=== PATIENT | male | born 1965 | race Caucasian/White ===

== ENCOUNTER 2016-12-18 10:40 | Observation (INO) | payer BC ==
[~2016-12-18] VITALS: Ht 176.5 cm; Wt 74.9 kg
[~2016-12-18 10:40] MED LIST: ACET-2723 PO; IBUP-2067 PO; TRAM200T2 PO; TRAM50TA4 PO; TRAZ300T2 PO
--- OUTSIDE RECORDS SUMMARY | 2016-12-18 10:44 | XMS REPORT ---
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 Non Drug Allergy Problems Problem Type Condition ICD-9 Code Onset Dates Condition Status Problem Generalized osteoarthrosis, involving multiple sites 715.09 Active Problem Tobacco use disorder 305.1 Active Problem Migraine headaches 346.90 Active Problem Chest pain, other 786.59 Active Assessment Adjustment disorder with mixed anxiety and depressed mood 309.28 Active Problem Adjustment disorder with mixed anxiety and depressed mood 309.28 Active Problem Syncope and collapse 780.2 Active Medications Medication Code System Code Instructions Start Date End Date Status Dosage Aspir-81 [facility] [address]-28 81 MG Orally Once a day 1 tablet Tramadol HCl [facility] [address]-37 50 MG Orally every 6 hrs 1 tablet as needed Fetzima [facility] 0206-4119-53 2-20mg capsules; 5-40 mg capsules: Starter Kit orally daily with breakfast Oct 24, 2014 November 23, 2014 as directed Procedures Procedure Coding System Code Date OFFICE VISIT, EST-MOD. COMPLEXITY (25 MIN) CPT-4 72496 Oct 24, 2014 Vital Signs Date/Time: Oct 24, 2014 Height 69 in Weight 168 lbs Temperature 98.3 F Blood Pressure Diastolic 84 mm Hg Blood Pressure Systolic 134 mm Hg Cardiac Monitoring Heart Rate 80 /min BMI 24.81 Index Respiratory Rate 20 /min Results No Known Results Summary Purpose [employer] Submission
--- OUTSIDE RECORDS SUMMARY | 2016-12-18 10:45 | XMS REPORT ---
Author Author Yury Patel Organization [employer] Address Unknown Phone Unavailable Care Team Providers Care Crime Scene Technician Name Role Phone Yury Patel CP Unavailable Allergies No Known Allergies Problems Problem Type Condition Code Onset Dates Condition Status Problem Migraine headaches 346.90 Active Problem Generalized osteoarthrosis, involving multiple sites 715.09 Active Problem Unspecified personality disorder 301.9 Active Problem Syncope and collapse 780.2 Active Problem Chest pain, other 786.59 Active Problem Tobacco use disorder 305.1 Active Problem Adjustment disorder with mixed anxiety and depressed mood 309.28 Active Medications No Known Medications Results No Known Results Summary Purpose [employer] Submission
--- OUTSIDE RECORDS SUMMARY | 2016-12-18 10:45 | XMS REPORT ---
Author Author Yury Patel Organization [employer] Address Unknown Phone Unavailable Care Team Providers Care Slip Mixer Name Role Phone Yury Patel CP Unavailable Allergies, Adverse Reactions, Alerts Substance Reaction Event Type Morphine Sulfate addicted Drug Allergy bee stings anaphylaxis Non Drug Allergy Problems Problem Type Condition ICD-9 Code Onset Dates Condition Status Assessment Generalized osteoarthrosis, involving multiple sites 715.09 Active Assessment Depressive disorder, not elsewhere classified 311 Active Assessment Central hearing loss 389.14 Active Problem Migraine headaches 346.90 Active Problem Generalized osteoarthrosis, involving multiple sites 715.09 Active Problem Depressive disorder, not elsewhere classified 311 Active Problem Syncope and collapse 780.2 Active Problem Chest pain, other 786.59 Active Problem Tobacco use disorder 305.1 Active Problem Adjustment disorder with mixed anxiety and depressed mood 309.28 Active Assessment Nocturia 788.43 Active Assessment Leukocytopenia, unspecified 288.50 Active Assessment 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 Assessment Hypocalcemia 275.41 Active Medications Medication Code System Code Instructions Start Date End Date Status Dosage Mobic [facility] [address]-82 7.5 MG Orally Once a day Oct 24, 2014 January 22, 2015 1 tablet Prilosec OTC [facility] [address]56 20 MG Orally Once a day Oct 24, 2014 1 tablet Tramadol HCl [facility] [address]-60 50 MG Orally every 6 hrs as needed for pain December 21, 2014 1 tablet as needed Aspir-81 [facility] [address]-78 81 MG Orally Once a day 1 tablet Procedures Procedure Coding System Code Date OFFICE VISIT, EST-MOD. COMPLEXITY (25 MIN) CPT-4 03396 November 21, 2014 Vital Signs Date/Time: November 21, 2014 Height 69 in Weight 162.8 lbs Temperature 97.9 F Blood Pressure Diastolic 70 mm Hg Blood Pressure Systolic 118 mm Hg Cardiac Monitoring Heart Rate 76 /min BMI 24.04 Index Respiratory Rate 16 /min Results No Known Results Summary Purpose [employer] Submission
--- OUTSIDE RECORDS SUMMARY | 2016-12-18 10:45 | XMS REPORT ---
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 Non Drug Allergy Problems Problem Type Condition ICD-9 Code Onset Dates Condition Status Assessment Other bursitis disorders 727.3 Active Problem Chest pain, other 786.59 Active Assessment Pain in joint, pelvic region and thigh 719.45 Active Assessment Leukocytopenia, unspecified 288.50 Active Problem Unspecified personality disorder 301.9 Active Problem Migraine headaches 346.90 Active Problem Depressive disorder, not elsewhere classified 311 Active Problem Adjustment disorder with mixed anxiety and depressed mood 309.28 Active Problem Syncope and collapse 780.2 Active Problem Generalized osteoarthrosis, involving multiple sites 715.09 Active Problem Tobacco use disorder 305.1 Active Medications Medication Code System Code Instructions Start Date End Date Status Dosage Tramadol HCl [facility] [address]-55 50 MG Orally every 6 hrs 1 tablet as needed Fetzima [facility] 4543-[address]-99 20 mg orally every AM and NOON December 05, 2014 November 30, 2015 as directed Prilosec OTC [facility] [address]60 20 MG Orally Once a day Oct 24, 2014 1 tablet Mobic [facility] [address]-45 15 MG Orally Once a day May 28, 2015 1 tablet Aspir-81 [facility] [address]-28 81 MG Orally Once a day 1 tablet Procedures Procedure Coding System Code Date PATHOLOGIST REVIEW CPT-4 69307 February 27, 2015 OFFICE VISIT, EST-MOD. COMPLEXITY (25 MIN) CPT-4 07814 February 27, 2015 COMPLETE CBC W/AUTO DIFF WBC CPT-4 84650 February 27, 2015 Vital Signs Date/Time: February 27, 2015 Height 69 in Weight 154.12 lbs Temperature 98.6 F Blood Pressure Diastolic 96 mm Hg Blood Pressure Systolic 146 mm Hg Cardiac Monitoring Heart Rate 83 /min BMI 22.76 Index Oximetry 98 % Respiratory Rate 18 /min Results Name Result Date Reference Range Unit Abnormality Flag CBC With Platelet and Differential Summary Purpose [employer] Submission
--- OUTSIDE RECORDS SUMMARY | 2016-12-18 10:45 | XMS REPORT ---
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 anaphylaxis Non Drug Allergy Problems Problem Type Condition ICD-9 Code Onset Dates Condition Status Problem Syncope and collapse 780.2 Active Problem Chest pain, other 786.59 Active Problem Adjustment disorder with mixed anxiety and depressed mood 309.28 Active Assessment Chest pain, other 786.59 Active Assessment Adjustment disorder with mixed anxiety and depressed mood 309.28 Active Assessment Syncope and collapse 780.2 Active Medications Medication Code System Code Instructions Start Date End Date Status Dosage Aspir-81 [facility][NOTE 3] [address]-25 81 MG Orally Once a day Active 1 tablet Tramadol HCl [facility][NOTE 3] [address]-56 50 MG Orally every 6 hrs Active 1 tablet as needed Procedures Procedure Coding System Code Date OFFICE VISIT, CLAIM INVESTIGATOR-LOW COMPLEXITY (30 MIN.) CPT-4 12447 Sep 20, 2014 Vital Signs Date/Time: Sep 20, 2014 Height 70 inches Weight 165.8 lbs Temperature 97.9 F Respiratory Rate 16 per Minute Blood Pressure Diastolic 80 mm Hg Blood Pressure Systolic 118 mm Hg Cardiac Monitoring Heart Rate 84 Beats per Minute Results No Known Results Summary Purpose [employer] Submission
--- OUTSIDE RECORDS SUMMARY | 2016-12-18 10:45 | XMS REPORT ---
Author Author Yury Patel Organization [employer] Address Unknown Phone Unavailable Care Team Providers Care Director Payment Name Role Phone Yury Patel CP Unavailable Allergies No Known Allergies Problems Problem Type Condition ICD-9 Code Onset Dates Condition Status Problem Syncope and collapse 780.2 Active Problem Chest pain, other 786.59 Active Problem Adjustment disorder with mixed anxiety and depressed mood 309.28 Active Medications No Known Medications Vital Signs Date/Time: Sep 20, 2014 Height 70 inches Weight 165.8 lbs Temperature 97.9 F Respiratory Rate 16 per Minute Blood Pressure Diastolic 80 mm Hg Blood Pressure Systolic 118 mm Hg Cardiac Monitoring Heart Rate 84 Beats per Minute Results No Known Results Summary Purpose [employer] Submission
--- OUTSIDE RECORDS SUMMARY | 2016-12-18 10:45 | XMS REPORT ---
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 Non Drug Allergy Problems Problem Type Condition ICD-9 Code Onset Dates Condition Status Assessment Esophageal reflux 530.81 Active Problem Chest pain, other 786.59 Active Assessment Abdominal pain, epigastric 789.06 Active Problem Unspecified personality disorder 301.9 Active Problem Migraine headaches 346.90 Active Problem Esophageal reflux 530.81 Active Problem Adjustment disorder with mixed anxiety and depressed mood 309.28 Active Problem Syncope and collapse 780.2 Active Problem Generalized osteoarthrosis, involving multiple sites 715.09 Active Problem Tobacco use disorder 305.1 Active Assessment Dizziness and giddiness 780.4 Active Assessment Blood in stool 578.1 Active Assessment Chest pain, other 786.59 Active Assessment Loss of weight 783.21 Active Assessment Dysuria 788.1 Active Medications Medication Code System Code Instructions Start Date End Date Status Dosage Tramadol HCl [facility] [address]-06 50 MG Orally every 6 hrs May 16, 2015 Jun 15, 2015 1 tablet as needed Trazodone HCl [facility] [address]-58 50 MG Orally Once a day May 01, 2015 1/2 to 2 tablets at bedtime Prilosec OTC [facility] [address] 20 MG Orally every 12 hours Oct 24, 2014 2 tablets Fetzima [facility] 8041-6671-36 20 mg orally every AM and NOON December 05, 2014 November 30, 2015 as directed Aspir-81 [facility] [address]-59 81 MG Orally Once a day 1 tablet Procedures Procedure Coding System Code Date OFFICE VISIT, EST-MOD. COMPLEXITY (25 MIN) CPT-4 33343 May 29, 2015 HEMOCCULT STOOL 1 CARD, IN HOUSE CPT-4 73203 May 29, 2015 Vital Signs Date/Time: May 29, 2015 Height 69 in Weight 156.8 lbs Temperature 98.2 F Blood Pressure Diastolic 92 mm Hg Blood Pressure Systolic 130 mm Hg Cardiac Monitoring Heart Rate 88 /min BMI 23.15 Index Oximetry 98 % Respiratory Rate 18 /min Results No Known Results Summary Purpose [employer] Submission
--- OUTSIDE RECORDS SUMMARY | 2016-12-18 10:45 | XMS REPORT ---
Author Author Yury Patel Organization [employer] Address Unknown Phone Unavailable Care Team Providers Care Umbrella Cutter Name Role Phone Yury Patel CP Unavailable Allergies No Known Allergies Problems Problem Type Condition Code Onset Dates Condition Status Problem Chest pain, other 786.59 Active Problem Adjustment disorder with mixed anxiety and depressed mood 309.28 Active Problem Syncope and collapse 780.2 Active Assessment Encounter for therapeutic drug level monitoring Z51.81 Active Problem Other anxiety states 300.09 Active Problem Esophageal reflux 530.81 Active Problem Depressive disorder, not elsewhere classified 311 Active Problem Generalized osteoarthrosis, involving multiple sites 715.09 Active Problem Tobacco use disorder 305.1 Active Problem Unspecified personality disorder 301.9 Active Problem Migraine headaches 346.90 Active Medications Medication Code System Code Instructions Start Date End Date Status Dosage Trazodone HCl [facility] [address]-84 50 MG Orally Once a day May 01, 2015 1/2 to 2 tablets at bedtime Vimovo [facility] [address]-73 375-20 MG Orally Twice a day Jun 26, 2015Sep 1 tablet before meals Results No Known Results Summary Purpose [employer] Submission
--- OUTSIDE RECORDS SUMMARY | 2016-12-18 10:45 | XMS REPORT ---
Author Author Yury Patel Organization [employer] Address Unknown Phone Unavailable Care Team Providers Care Security System Administrator Name Role Phone Yury Patel CP Unavailable Allergies, Adverse Reactions, Alerts Substance Reaction Event Type Morphine Sulfate addicted Drug Allergy bee stings anaphylaxis Non Drug Allergy Problems Problem Type Condition ICD-9 Code Onset Dates Condition Status Assessment Generalized osteoarthrosis, involving multiple sites 715.09 Active Assessment Chest pain, other 786.59 Active Assessment Migraine headaches 346.90 Active Assessment Tobacco use disorder 305.1 Active Problem Generalized osteoarthrosis, involving multiple sites [...] Instructions Start Date End Date Status Dosage Prilosec OTC [facility] [address] 20 MG Orally Once a day Oct 24, 2014 1 tablet Tramadol HCl [facility] [address]-00 50 MG Orally every 6 hrs as needed for pain November 23, 2014 1 tablet as needed Mobic [facility] [address]-54 7.5 MG Orally Once a day Oct 24, 2014 January 22, 2015 1 tablet Aspir-81 [facility] [address]-14 81 MG Orally Once a day 1 tablet Procedures Procedure Coding System Code Date OFFICE VISIT, EST-MOD. COMPLEXITY (25 MIN) CPT-4 05922 Oct 24, 2014 Vital Signs Date/Time: Oct 24, 2014 Height 69 in Weight 166 lbs Temperature 98.0 F Blood Pressure Diastolic 78 mm Hg Blood Pressure Systolic 132 mm Hg Cardiac Monitoring Heart Rate 80 /min BMI 24.51 Index Respiratory Rate 18 /min Results No Known Results Summary Purpose [employer] Submission
--- OUTSIDE RECORDS SUMMARY | 2016-12-18 10:45 | XMS REPORT ---
Author Author Yury Patel Organization [employer] Address Unknown Phone Unavailable Care Team Providers Care Cotton Tipper Name Role Phone Yury Patel CP Unavailable Allergies No Known Allergies Problems Problem Type Condition Code Onset Dates Condition Status Problem Tobacco use disorder 305.1 Active Problem Migraine headaches 346.90 Active Problem Generalized osteoarthrosis, involving multiple sites 715.09 Active Problem Gastro-esophageal reflux disease without esophagitis K21.9 Active Problem Nicotine dependence, unspecified, uncomplicated F17.200 Active Problem Primary generalized (osteo)arthritis M15.0 Active Problem Esophageal reflux 530.81 Active Problem Unspecified personality disorder 301.9 Active Problem Depressive disorder, not elsewhere classified 311 Active Problem Other anxiety states 300.09 Active Problem Chest pain, other 786.59 Active Problem Syncope and collapse 780.2 Active Problem Adjustment disorder with mixed anxiety and depressed mood 309.28 Active Medications Medication Code System Code Instructions Start Date End Date Status Dosage Tramadol HCl [facility] [address]-13 50 MG Orally every 6 hrs Jun 19, 2015 Aug 06, 2016 1 tablet as needed Results No Known Results Summary Purpose [employer] Submission
--- OUTSIDE RECORDS SUMMARY | 2016-12-18 10:45 | XMS REPORT ---
Author Author Yury Patel Organization [employer] Address Unknown Phone Unavailable Care Team Providers Care Elementary Art Teacher Name Role Phone Yury Patel CP Unavailable Allergies No Known Allergies Problems Problem Type Condition ICD-9 Code Onset Dates Condition Status Assessment Depressive disorder, not elsewhere classified 311 Active Problem Migraine headaches 346.90 Active Problem [...] Start Date End Date Status Dosage Mobic [facility] [address]-61 7.5 MG Orally Once a day Oct 24, 2014 January 22, 2015 1 tablet Prilosec OTC [facility] [address]67 20 MG Orally Once a day Oct 24, 2014 1 tablet Aspir-81 [facility] [address]-04 81 MG Orally Once a day 1 tablet Tramadol HCl [facility] [address]-83 50 MG Orally every 6 hrs as needed for pain December 21, 2014 1 tablet as needed Procedures Procedure Coding System Code Date COMPLETE CBC W/AUTO DIFF WBC CPT-4 39069 November 28, 2014 COMPREHENSIVE METABOLIC PANEL CPT-4 12462 November 28, 2014 URINALYSIS, IN HOUSE CPT-4 43031 November 28, 2014 TSH CPT-4 99738 November 28, 2014 LIPID PANEL CPT-4 81020 November 28, 2014 PSA NO REFLEX CPT-4 92717 November 28, 2014 Results No Known Results Summary Purpose [employer]Works Submission
--- OUTSIDE RECORDS SUMMARY | 2016-12-18 10:46 | XMS REPORT | Continuity of Care Document ---
Author Author [facility] Organization [facility] Address Unknown Phone Unavailable Support Name Relationship Address Phone RAYNA GROVE DO Caregiver [address] [address] CLARK BARBARA Janak Next Of Kin [address] [place] [address] Insurance Providers Payer Name Policy Number Subscriber Name Relationship Self Pay Roe Rodas 20 Self Problems Medical Problems Problem Onset Date Status Dizziness Unknown Active Blurred vision Unknown Active Atypical chest pain Unknown Active Dizziness Unknown Active Medications Medication Dose Route Sig Days/Qty Instructions Order Date Discontinued Date Status [No Regular Meds] 08/20/09 10/11/11 Discontinued Ibuprofen 1 Tab PO Every 6 Hours PRN PAIN 09/09/14 Active Acetaminophen 1-2 Tab PO Every 6 Hours PRN PAIN 09/09/14 Active Social History Social History Problem Response Recorded Date/Time Chewing Tobacco Status Y 5 CANS PER WEEK 11/25/2013 7:47pm Hx Substance Use No 09/09/2014 3:14pm Hx Alcohol Use No 09/09/2014 3:14pm Tobacco Usage none 09/09/2014 1:41pm Query Response Start Date Stop Date Smoking Status Never smoker Hospital Discharge Instructions No hospital discharge instructions. Plan of Care No plan of care. Functional Status Query Response Date Recorded Physical Hygiene Self September 09, 2014 3:14pm Disabilities None September 09, 2014 3:14pm Devices Used None September 09, 2014 3:14pm Dressing Self September 09, 2014 3:14pm Ambulation Self September 09, 2014 3:14pm Diet Self September 09, 2014 3:14pm Mental Status Alert Oriented September 09, 2014 3:14pm Disabilities None September 09, 2014 3:14pm Devices Used None September 09, 2014 3:14pm Physical Hygiene Self September 09, 2014 3:14pm Dressing Self September 09, 2014 3:14pm Ambulation Self September 09, 2014 3:14pm Diet Self September 09, 2014 3:14pm Allergies, Adverse Reactions, Alerts Allergen Type Severity Reaction Status Last Updated Morphine Adverse Reaction Unknown PMH ADDICTION TO MORPHINE Active Immunizations Name Given Type Hx Influenza Vaccination No Historical Hx Tetanus, Diptheria, Pertussis No Historical Hx Influenza Vaccination No Historical Hx Tetanus, Diptheria, Pertussis No Historical Vital Signs Acute Vital Signs Vital Response Date/Time Temperature (Fahrenheit) 98.0 deg F (96.8 - 99.1) Temperature (Calculated Celsius) 36.20736 degrees C (36.0 - 37.3) Pulse Rate (adult) 83 bpm (60 - 100) Respiratory Rate 16 breaths/min (10 - 20) O2 Sat by Pulse Oximetry 100 % (90 - 100) Blood Pressure 134/79 mm Hg Height 5 ft 9.5 in Weight 164 lb Body Mass Index 23.0 kg/m^2 Results Test Source Date Result Interp. Ref. Range Comments Alanine Aminotransferase (ALT/SGPT) September 09, 2014 12:40pm 36 U/L N 21 -72 Albumin September 09, 2014 12:40pm 4.8 G/DL N 3.5-5.0 Albumin/Globulin Ratio September 09, 2014 12:40pm 1.7 RATIO N 1.1-2.2 Alkaline Phosphatase September 09, 2014 12:40pm 81 U/L N 38-126 Anion Gap September 09, 2014 12:40pm 11 MEQ/L N 5-15 Aspartate Amino Transf (AST/SGOT) September 09, 2014 12:40pm 34 U/L N 17- 59 BUN/Creatinine Ratio September 09, 2014 12:40pm 19 RATIO N 6-26 Band Neutrophils # September 09, 2014 12:40pm 0.2 T/MM3 - Band Neutrophils % September 09, 2014 12:40pm 4.0 % DN 0-6 Blood Urea Nitrogen September 09, 2014 12:40pm 17.0 MG/DL N 9-20 Calcium Level September 09, 2014 12:40pm 10.1 MG/DL N 8.4-10.2 Calculated Osmolality September 09, 2014 12:40pm 274 MOSM/KG N 261-280 Carbon Dioxide Level September 09, 2014 12:40pm 28 MEQ/L N 22-30 Chloride Level September 09, 2014 12:40pm 103 MEQ/L N 98-107 Creatinine September 09, 2014 12:40pm 0.9 MG/DL N 0.8-1.5 Globulin September 09, 2014 12:40pm 2.8 G/DL N 2.4-3.6 Glucose Level September 09, 2014 12:40pm 85 MG/DL N 75-110 Hematocrit September 09, 2014 12:40pm 47.3 % N 41-53 Hemoglobin September 09, 2014 12:40pm 16.2 GM/DL N 13.5-17.5 Influenza Type A Antigen November 25, 2013 8:00pm Negative - Negative for Flu A protein antigen. Assay sensitivity is90%. Influenza Type B Antigen November 25, 2013 8:00pm Negative - Negative for Flu B protein antigen. Assay sensitivity is90%. Lymphocytes # (Manual) September 09, 2014 12:40pm 1.1 T/MM3 N 1-4.8 Lymphocytes % (Manual) September 09, 2014 12:40pm 21.0 % L 23-45 Mean Corpuscular Hemoglobin September 09, 2014 12:40pm 31.1 UUG N 26-34 Mean Corpuscular Hemoglobin Concent September 09, 2014 12:40pm 34.2 GM/DL N 31-37 Mean Corpuscular Volume September 09, 2014 12:40pm 90.8 UM3 N 80-100 Mean Platelet Volume September 09, 2014 12:40pm 9.5 UM3 N 9.4-12.4 Monocytes # (Manual) September 09, 2014 12:40pm 0.1 T/MM3 N 0-0.8 Monocytes % (Manual) September 09, 2014 12:40pm 2.0 % N 0-9.0 Neutrophils # (Manual) September 09, 2014 12:40pm 3.8 T/MM3 N 1.8-7.7 Neutrophils % (Manual) September 09, 2014 12:40pm 70.0 % H 33-66 Platelet Count September 09, 2014 12:40pm 180 T/MM3 N 130-400 Potassium Level September 09, 2014 12:40pm 5.0 MEQ/L N 3.6-5 Prothromb Time International Ratio September 09, 2014 12:40pm 1.00 N 0.81- 1.09 THERAPUTIC RANGE=2.00-3.00 FOR ANTI-THROMBOSIS THERAPUTIC RANGE=2.50- 3.50 FOR IMPLANTED VALVE RDW Standard Deviation September 09, 2014 12:40pm 44.0 FL N 36.9-50.2 Red Blood Count September 09, 2014 12:40pm 5.21 M/MM3 N 4.50-5.90 Sodium Level September 09, 2014 12:40pm 142 MEQ/L N 134-144 Total Bilirubin September 09, 2014 12:40pm 0.70 MG/DL N 0.20-1.30 Total Protein September 09, 2014 12:40pm 7.6 G/DL N 6.3-8.2 Troponin I September 09, 2014 12:40pm < 0.012 ng/ml 0-0.12 Urine Bilirubin September 09, 2014 12:28pm Negative - Has specimen been collected/obtained? Y Urine Blood September 09, 2014 12:28pm Negative - Has specimen been collected/obtained? Y Urine Collection Type September 09, 2014 12:28pm Voided-not cc-midstr - Has specimen been collected/obtained? Y Urine Color September 09, 2014 12:28pm Yellow - Has specimen been collected/obtained? Y Urine Glucose (UA) September 09, 2014 12:28pm Negative - Has specimen been collected/obtained? Y Urine Ketones September 09, 2014 12:28pm Negative - Has specimen been collected/obtained? Y Urine Leukocyte Esterase September 09, 2014 12:28pm Negative - Has specimen been collected/obtained? Y Urine Nitrite September 09, 2014 12:28pm Negative - Has specimen been collected/obtained? Y Urine Protein September 09, 2014 12:28pm Negative - Has specimen been collected/obtained? Y Urine Specific [place] September 09, 2014 12:28pm 1.010 L - Has specimen been collected/obtained? Y Urine Turbidity September 09, 2014 12:28pm Clear - Has specimen been collected/obtained? Y Urine Urobilinogen September 09, 2014 12:28pm 0.2 EU/DL - Has specimen been collected/obtained? Y Urine pH September 09, 2014 12:28pm 6.0 - Has specimen been collected/ obtained? Y White Blood Count September 09, 2014 12:40pm 5.4 T/MM3 N 4.5-11.0 Chemistry Specimen Hemolysis September 09, 2014 12:40pm < 15 0-25 0-25 : No Hemolysis.26-70: Slight Hemolysis - can falsely elevate K and Urine Protein. 71-285: Moderate Hemolysis - can falsely elevate K, Troponin I, CA 19-9, PTH, CSF GLucose, and Urine Protein, and can falsely decrease Phenytoin. 286-999: Gross Hemolysis - can falsely elevate K, Troponin I, CA 19-9, PTH, CSF Glucose, and Urine Protine, and can falsely decrease Phenytoin. Recommend specimen recollection. Urinalysis Comment September 09, 2014 12:28pm Microscopic not ind. - Has specimen been collected/obtained? Y Turbidity September 09, 2014 12:40pm < 20 0-20 Reactive Lymphocytes % September 09, 2014 12:40pm 3.0 % H 0-0 Glomerular Filtration Rate Calc September 09, 2014 12:40pm 90 - Reactive Lymphocytes # September 09, 2014 12:40pm 0.2 T/MM3 H 0-0 Icterus Index September 09, 2014 12:40pm < 2 0-7 Procedures No known history of procedures. Encounters Encounter Location Date/Time Departed Emergency Room [facility] 09/09/14 11:21am Recent Diagnosis
--- OUTSIDE RECORDS SUMMARY | 2016-12-18 10:46 | XMS REPORT ---
Author Author Yury Patel Organization [employer] Address Unknown Phone Unavailable Care Team Providers Care Cupola Patcher Helper Name Role Phone Yury Patel CP Unavailable Allergies No Known Allergies Problems Problem Type Condition Code Onset Dates Condition Status Problem Chest pain, other 786.59 Active Problem Adjustment disorder with mixed anxiety and depressed mood 309.28 Active Problem Syncope and collapse 780.2 Active Problem Other anxiety states 300.09 Active [...] Tramadol HCl [facility] [address]-84 50 MG Orally every 6 hrs Jun 19, 2015 Jul 19, 2015 1 tablet as needed Results No Known Results Summary Purpose [employer] Submission
--- OUTSIDE RECORDS SUMMARY | 2016-12-18 10:46 | XMS REPORT ---
Author Author Yury Patel Organization [employer] Address Unknown Phone Unavailable Care Team Providers Care Hand Outside Cutter Name Role Phone Yury Patel CP Unavailable Allergies No Known Allergies Problems Problem Type Condition ICD-9 Code Onset Dates Condition Status Problem Migraine [...]
--- OUTSIDE RECORDS SUMMARY | 2016-12-18 10:46 | XMS REPORT | Continuity of Care Document ---
Author Author [facility] Organization [facility] Address Unknown Phone Unavailable Allergies Active Description Code Type Severity Reaction Onset Reported/Identified Relationship to Patient Clinical Status Yes morphine morphine Drug Allergy Unknown UNKNOWN 09/09/2014 Medications Problems Date Dx Coded Attending Type Code Diagnosis Diagnosed By 09/09/2014 Arnaldo Titus MD 368.8 VISUAL DISTURBANCES NEC 09/09/2014 Arnaldo Titus MD 780.4 DIZZINESS AND GIDDINESS 09/09/2014 Arnaldo Titus MD 780.8 GENERALIZED HYPERHIDROSIS 09/09/2014 Arnaldo Titus MD 781.2 ABNORMALITY OF GAIT 09/09/2014 Arnaldo Titus MD 786.59 CHEST PAIN NEC 09/09/2014 Arnaldo Titus MD 787.02 NAUSEA ALONE Procedures Results Test Result Range C REACTIVE PROTEIN - 09/09/14 18:43 C REACTIVE PROTEIN < 2.9 mg/L < 8.0 TROPONIN I - 09/09/14 18:43 TROPONIN I < 0.02 ng/mL < 0.07 SED RATE - 09/09/14 18:43 SED RATE 5 mm/hr 0-7 GLUCOSE (POC) - 09/09/14 20:55 GLUCOSE (POC) 103 mg/dL 70-99 UR DRUGS OF ABUSE SCREEN - 09/10/14 00:45 UR AMPHETAMINES SCREEN NEG (<1000 ng/mL) NEGATIVE UR BARBITURATE SCREEN NEG (< 200 ng/mL) NEGATIVE DRUGS OF ABUSE SCREEN COMMENT UR OPIATES SCREEN NEG (< 300 ng/mL) NEGATIVE UR PHENCYCLIDINE (PCP) SCREEN NEG (< 25 ng/mL) NEGATIVE UR CANNABINOIDS (THC) SCREEN NEG (< 50 ng/mL) NEGATIVE UR COCAINE METABOLITE SCREEN NEG (< 300 ng/mL) NEGATIVE UR METHADONE SCREEN NEG (< 300 ng/mL) NEGATIVE UR BENZODIAZEPINE SCREEN NEG (< 200 ng/mL) NEGATIVE GLUCOSE (POC) - 09/10/14 06:38 GLUCOSE (POC) 81 mg/dL 70-99 CBC W/DIFF - 09/10/14 06:38 BASOPHIL # 0.0 k/cumm 0.0-0.2 BASOPHIL % 1 % 0-1 EOSINOPHIL # 0.1 k/cumm 0.1-0.5 EOSINOPHIL % 4 % 2-4 GRANULOCYTE # 1.6 k/cumm 2.0-9.0 GRANULOCYTE % 49 % 50-75 LYMPHOCYTE # 1.2 k/cumm 1.0-4.0 LYMPHOCYTE % 35 % 20-30 MEAN CELL HGB 31.4 pg 27.0-33.0 MEAN CELL HGB CONCENTRATION 34.2 g/dL 32.0-37.0 MEAN CELL VOLUME 91.7 fl 80.0-100.0 MONOCYTE # 0.4 k/cumm 0.1-1.0 MONOCYTE % 11 % 4-6 RED BLOOD CELL 4.81 m/cumm 4.00-6.00 RED CELL DISTRIBUTION WIDTH 13.4 % 11.0- 15.6 WHITE BLOOD CELL 3.3 k/cumm 5.0-10.0 HEMOGLOBIN 15.1 gm/dL 14.0-18.0 HEMATOCRIT 44.1 % 40.0-54.0 PLATELET COUNT 146 k/cumm 150-400 METABOLIC PANEL, COMPREHN - 09/10/14 06:38 POTASSIUM 4.5 mmol/L 3.5-5.3 EST GFR (MDRD) > 60 mL/min > 59 ANION GAP 6 mmol/L 5-15 EST CrCl (CG) > 60 mL/min > 59 GLUCOSE 91 mg/dL 70-99 CALCIUM 7.8 mg/dL 8.5-10.1 BLOOD UREA NITROGEN 14 mg/dL 7-20 CREATININE 0.9 mg/dL 0.8-1.3 SODIUM 141 mmol/L 135-148 CHLORIDE 111 mmol/L 98-110 AST/SGOT 16 Units/L 10-37 ALT/SGPT 26 Units/L < 66 CARBON DIOXIDE 24 mmol/L 21-32 TOTAL PROTEIN 6.0 gm/dL 6.4-8.2 ALBUMIN 3.1 gm/dL 3.4-5.0 BILI TOTAL 0.6 mg/dL 0.0-1.0 ALKALINE PHOSPHATASE TOTAL 64 IU/L 45- 117 LIPID PANEL - 09/10/14 06:38 CHOLESTEROL/HDL RATIO 3.5 < 5.0 LDL CHOLESTEROL 91 mg/dL < 100 VLDL CHOLESTEROL 20 mg/dL < 30 TRIGLYCERIDES 101 mg/dL < 150 CHOLESTEROL 156 mg/dL < 200 HDL CHOLESTEROL 45 mg/dL > 39 PHOSPHORUS - 09/10/14 06:38 PHOSPHORUS 3.2 mg/dL 2.5-4.9 MAGNESIUM - 09/10/14 06:38 MAGNESIUM 2.1 mg/dL 1.8-2.4 VITAMIN B12 - 09/10/14 06:38 VITAMIN B12 739 pg/mL 211-911 THYROID STIM HORMONE (TSH) - 09/10/14 06:38 THYROID STIM HORMONE (TSH) 2.24 uIU/mL 0.34-4.82 TROPONIN I - 09/10/14 06:38 TROPONIN I < 0.02 ng/mL < 0.07 THROMBOPHILIA PROFILE, STROKE - 09/10/14 06:38 DILUTE RUFINO VIPER VENOM TIME NEGATIVE NEGATIVE SILICA CLOTTING TIME NEGATIVE NEGATIVE BETA-2 GLYCOPROTEIN I AB IGA < 9 0-25 BETA-2 GLYCOPROTEIN I AB IGG < 9 0-20 BETA-2 GLYCOPROTEIN I AB IGM < 9 0-32 AB CARDIOLIPIN IGA <9 APL U/mL 0-11 AB CARDIOLIPIN IGG <9 GPL U/mL 0-14 AB CARDIOLIPIN IGM <9 MPL U/mL 0-12 FIBRINOGEN 258 mg/dL 200-400 FACTOR 8 ACTIVITY 121.3 % act 63-177 [place] FACTOR ANTIGEN 171 % 44- 218 PLASMINOGEN ACTIVATOR INHIBIT 10.0 IU/mL 0-27 LIPOPROTEIN (a) < 10 nmol/L <75 HOMOCYSTEINE, PLASMA 6.3 mcmol/L 3.7- 13.9 GLUCOSE (POC) - 09/10/14 10:34 GLUCOSE (POC) 77 mg/dL 70-99 GLUCOSE (POC) - 09/10/14 14:06 GLUCOSE (POC) 78 mg/dL 70-99 GLUCOSE (POC) - 09/10/14 19:55 GLUCOSE (POC) 94 mg/dL 70-99 CBC W/DIFF - 09/11/14 05:12 BASOPHIL # 0.0 k/cumm 0.0-0.2 BASOPHIL % 1 % 0-1 EOSINOPHIL # 0.2 k/cumm 0.1-0.5 EOSINOPHIL % 5 % 2-4 GRANULOCYTE # 1.6 k/cumm 2.0-9.0 GRANULOCYTE % 44 % 50-75 LYMPHOCYTE # 1.4 k/cumm 1.0-4.0 LYMPHOCYTE % 39 % 20-30 MEAN CELL HGB 30.9 pg 27.0-33.0 MEAN CELL HGB CONCENTRATION 33.9 g/dL 32.0-37.0 MEAN CELL VOLUME 91.2 fl 80.0-100.0 MONOCYTE # 0.4 k/cumm 0.1-1.0 MONOCYTE % 12 % 4-6 RED BLOOD CELL 4.89 m/cumm 4.00-6.00 RED CELL DISTRIBUTION WIDTH 13.2 % 11.0- 15.6 WHITE BLOOD CELL 3.6 k/cumm 5.0-10.0 HEMOGLOBIN 15.1 gm/dL 14.0-18.0 HEMATOCRIT 44.6 % 40.0-54.0 PLATELET COUNT 146 k/cumm 150-400 METABOLIC PANEL, BASIC - 09/11/14 05:12 POTASSIUM 4.3 mmol/L 3.5-5.3 EST GFR (MDRD) > 60 mL/min > 59 ANION GAP 5 mmol/L 5-15 EST CrCl (CG) > 60 mL/min > 59 GLUCOSE 102 mg/dL 70-99 CALCIUM 8.5 mg/dL 8.5-10.1 BLOOD UREA NITROGEN 17 mg/dL 7-20 CREATININE 0.9 mg/dL 0.8-1.3 SODIUM 142 mmol/L 135-148 CHLORIDE 110 mmol/L 98-110 CARBON DIOXIDE 27 mmol/L 21-32 GLUCOSE (POC) - 09/11/14 05:51 GLUCOSE (POC) 92 mg/dL 70-99 GLUCOSE (POC) - 09/11/14 11:07 GLUCOSE (POC) 83 mg/dL 70-99 GLUCOSE (POC) - 09/11/14 17:01 GLUCOSE (POC) 77 mg/dL 70-99 ANTITHROMBIN ACTIVITY - 09/11/14 17:16 ANTITHROMBIN ACTIVITY 119 % 78-128 FACTOR II, DNA - 09/11/14 17:16 FACTOR II, DNA NEGATIVE NEGATIVE PROTEIN C ACTIVITY - 09/11/14 17:16 PROTEIN C ACTIVITY 112 % act 82-154 FACTOR V DNA - LEIDEN VARIANT - 09/11/14 17:16 FACTOR V MUTATION DNA NEGATIVE NEGATIVE PROTEIN S ANTIGEN FREE - 09/11/14 17:16 PROTEIN S ANTIGEN FREE 129 % 73-137 GLUCOSE (POC) - 09/11/14 19:44 GLUCOSE (POC) 87 mg/dL 70-99 GLUCOSE (POC) - 09/12/14 05:43 GLUCOSE (POC) 161 mg/dL 70-99 GLUCOSE (POC) - 09/12/14 11:15 GLUCOSE (POC) 98 mg/dL 70-99 GLUCOSE (POC) - 09/12/14 14:54 GLUCOSE (POC) 101 mg/dL 70-99 GLUCOSE (POC) - 09/12/14 20:23 GLUCOSE (POC) 105 mg/dL 70-99 GLUCOSE (POC) - 09/13/14 06:24 GLUCOSE (POC) 83 mg/dL 70-99 GLUCOSE (POC) - 09/13/14 09:58 GLUCOSE (POC) 91 mg/dL 70-99 Encounters ACCT No. Visit Date/Time Discharge Status Pt. Type Provider Facility Loc./Unit Complaint [id number] 09/09/2014 17:53:00 2014 13:37:00 DIS Inpatient Tacho CABRERA, J [facility] [id number]
--- OUTSIDE RECORDS SUMMARY | 2016-12-18 10:46 | XMS REPORT ---
Author Author Yury Patel Organization [employer] Address Unknown Phone Unavailable Care Team Providers Care Electrical Machine Builder Name Role Phone Yury Patel CP Unavailable Allergies No Known Allergies Problems Problem Type Condition ICD-9 Code Onset Dates Condition Status Problem Chest pain, other 786.59 Active Problem Unspecified personality disorder 301.9 Active [...] End Date Status Dosage Tramadol HCl [facility] [address]-10 50 MG Orally every 6 hrs May 13, 2015 1 tablet as needed Results No Known Results Summary Purpose [employer] Submission
--- OUTSIDE RECORDS SUMMARY | 2016-12-18 10:46 | XMS REPORT ---
Author Author Yury Patel Organization [employer] Address Unknown Phone Unavailable Care Team Providers Care Bee Rancher Name Role Phone Yury Patel CP Unavailable [...] Instructions Start Date End Date Status Dosage Colace [facility] [address]-53 100 MG Orally BID Aug 08, 2016 November 06, 2016 1 capsule as needed Tramadol HCl [facility] [address]-61 50 MG Orally every 6 hrs Jun 19, 2015 Sep 07, 2016 1 tablet as needed Results No Known Results Summary Purpose [employer] Submission
--- OUTSIDE RECORDS SUMMARY | 2016-12-18 10:46 | XMS REPORT ---
Author Author Yury Patel Organization [employer] Address Unknown Phone Unavailable Care Team Providers Care Road Freight Firer Name Role Phone Yury Patel CP Unavailable [...]
--- OUTSIDE RECORDS SUMMARY | 2016-12-18 10:46 | XMS REPORT ---
Author Author Yury Patel Organization [employer] Address Unknown Phone Unavailable Care Team Providers Care Teacher Adventure Education Name Role Phone Yury Patel CP Unavailable [...] Problem Tobacco use disorder 305.1 Active Medications No Known Medications Results No Known Results Summary Purpose [employer] Submission
--- OUTSIDE RECORDS SUMMARY | 2016-12-18 10:46 | XMS REPORT ---
Author Author Yury Patel Organization [employer] Address Unknown Phone Unavailable Care Team Providers Care Senior Support Engineer Name Role Phone Yury Patel CP Unavailable [...] Active Problem Migraine headaches 346.90 Active Medications No Known Medications Results No Known Results Summary Purpose [employer] Submission
--- OUTSIDE RECORDS SUMMARY | 2016-12-18 10:46 | XMS REPORT ---
Author Author Yury Patel Organization [employer] Address Unknown Phone Unavailable Care Team Providers Care Other Wood Processing Machine Operator Name Role Phone Yury Patel CP Unavailable [...]
--- OUTSIDE RECORDS SUMMARY | 2016-12-18 10:46 | XMS REPORT ---
Author Author Yury Patel Organization [employer] Address Unknown Phone Unavailable Care Team Providers Care Brown Sourer Name Role Phone Yury Patel CP Unavailable [...] Date End Date Status Dosage Tramadol HCl [facility] [address]-06 50 MG Orally every 6 hrs Jun 19, 2015 Aug 22, 2015 1 tablet as needed Results No Known Results Summary Purpose [employer] Submission
--- OUTSIDE RECORDS SUMMARY | 2016-12-18 10:47 | XMS REPORT ---
Author Author Yury Patel Organization [employer] Address Unknown Phone Unavailable Care Team Providers Care Executive Producer Name Role Phone Yury Patel CP Unavailable [...] Date Status Dosage Tramadol HCl [facility] [address]-07 50 MG Orally every 6 hrs, May fill 09-26-15. Jun 19, 2015 Oct 25, 2015 1 tablet as needed Results No Known Results Summary Purpose [employer] Submission
--- OUTSIDE RECORDS SUMMARY | 2016-12-18 10:47 | XMS REPORT ---
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 anaphylaxis Non Drug Allergy Problems Problem Type Condition Code Onset Dates Condition Status Assessment Depressive disorder, not elsewhere classified 311 Active Problem Chest pain, other 786.59 Active Assessment Adjustment disorder with mixed anxiety and depressed mood 309.28 Active Problem Unspecified personality disorder 301.9 Active [...] Start Date End Date Status Dosage Mobic [facility] 44749612129 7.5 Orally Once a day 1 tablet Aspir-81 [facility] [address]-52 81 MG Orally Once a day 1 tablet Fetzima [facility] [address]29[address]-44 20 mg orally every AM and NOON December 05, 2014 November 30, 2015 as directed Tramadol HCl [facility] [address]-29 50 MG Orally every 6 hrs 1 tablet as needed Prilosec OTC [facility] [address] 20 MG Orally Once a day Oct 24, 2014 1 tablet Procedures Procedure Coding System Code Date OFFICE VISIT, EST-MOD. COMPLEXITY (25 MIN) CPT-4 88422 January 30, 2015 Vital Signs Date/Time: January 30, 2015 Height 69 in Weight 157.4 lbs Temperature 97.8 F Blood Pressure Diastolic 76 mm Hg Blood Pressure Systolic 116 mm Hg Cardiac Monitoring Heart Rate 80 /min BMI 23.24 Index Respiratory Rate 20 /min Results No Known Results Summary Purpose [employer] Submission
--- OUTSIDE RECORDS SUMMARY | 2016-12-18 10:47 | XMS REPORT ---
Author Author Yury Patel Organization [employer] Address Unknown Phone Unavailable Care Team Providers Care Molding Press Operator Name Role Phone Yury Patel CP [...] 301.9 Active Problem Migraine headaches 346.90 Active Assessment Encounter for immunization Z23 Active Assessment Dizziness and giddiness R42 Active Assessment Primary generalized (osteo)arthritis M15.0 Active Assessment Nicotine dependence, unspecified, uncomplicated F17.200 Active Medications Medication Code System Code Instructions Start Date End Date Status Dosage Trazodone HCl [facility] [address]-80 50 MG Orally Once a day May 01, 2015 1/2 to 2 tablets at bedtime Tramadol HCl [facility] [address]-84 50 MG Orally every 6 hrs Jun 19, 2015 Jul 19, 2015 1 tablet as needed Vimovo [facility] [address]-46 375-20 MG Orally Twice a day Jun 26, 2015Sep 1 tablet before meals Procedures Procedure Coding System Code Date FLU VACCINE NO PRESERV 3 & > CPT-4 67562 Jun 26, 2015 ADMINISTRATION, 1ST IMMUNIZATION CPT-4 88580 Jun 26, 2015 OFFICE VISIT, EST-LOW COMPLEXITY (15 MIN.) CPT-4 09031 Jun 26, 2015 Vital Signs Date/Time: Jun 26, 2015 Height 69 in Weight 155.4 lbs Temperature 97.6 F Blood Pressure Diastolic 86 mm Hg Blood Pressure Systolic 126 mm Hg Cardiac Monitoring Heart Rate 80 /min BMI 22.95 Index Oximetry 98 % Respiratory Rate 16 /min Results No Known Results Immunizations Vaccine Administration Date Influenza shot 3 y.o. and older Jun 26, 2015 Summary Purpose [employer] Submission
--- OUTSIDE RECORDS SUMMARY | 2016-12-18 10:47 | XMS REPORT ---
Author Author Vanessa Cintron Organization [employer] Address Unknown Phone Unavailable Care Team Providers Care Signs And Displays Sales Representative Name Role Phone Vanessa Cintron CP Unavailable Allergies, Adverse Reactions, Alerts Substance Reaction Event Type Morphine Sulfate addicted Drug Allergy bee stings anaphylaxis Non Drug Allergy Problems Problem Type Condition ICD-9 Code Onset Dates Condition Status Assessment Depressive disorder, not elsewhere classified 311 Active Problem Chest pain, other 786.59 Active Assessment Adjustment disorder with mixed anxiety and depressed mood 309.28 Active Assessment Unspecified personality disorder 301.9 Active Problem Unspecified personality disorder 301.9 Active [...] Date End Date Status Dosage Tramadol HCl [facility] [address]-99 50 MG Orally every 6 hrs as needed for pain December 21, 2014 1 tablet as needed Aspir-81 [facility] [address]-85 81 MG Orally Once a day 1 tablet Prilosec OTC [facility] [address] 20 MG Orally Once a day Oct 24, 2014 1 tablet Fetzima [facility] 6148[address]-65 20 mg orally every AM and NOON December 05, 2014 November 30, 2015 as directed Mobic [facility] [address]-57 7.5 MG Orally Once a day Oct 24, 2014 January 22, 2015 1 tablet Procedures Procedure Coding System Code Date OFFICE VISIT, EST-MOD. COMPLEXITY (25 MIN) CPT-4 73096 December 05, 2014 Vital Signs Date/Time: December 05, 2014 Height 69 in Weight 157 lbs Temperature 98.7 F Blood Pressure Diastolic 70 mm Hg Blood Pressure Systolic 132 mm Hg Cardiac Monitoring Heart Rate 78 /min BMI 23.18 Index Respiratory Rate 20 /min Results No Known Results Summary Purpose [employer]Works Submission
--- OUTSIDE RECORDS SUMMARY | 2016-12-18 10:47 | XMS REPORT ---
Author Author Yury Patel Organization [employer] Address Unknown Phone Unavailable Care Team Providers Care Distribution Collection Operator Name Role Phone Yury Patel CP [...]
--- OUTSIDE RECORDS SUMMARY | 2016-12-18 10:47 | XMS REPORT ---
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 Non Drug Allergy Problems Problem Type Condition ICD-9 Code Onset Dates Condition Status Assessment Leukocytopenia, unspecified 288.50 Active Problem Chest pain, other 786.59 Active Assessment Other bursitis disorders 727.3 Active Problem Unspecified personality disorder 301.9 Active [...] End Date Status Dosage Tramadol HCl [facility] [address]-85 50 MG Orally every 6 hrs Apr 14, 2015 1 tablet as needed Mobic [facility] [address]-72 15 MG Orally Once a day May 28, 2015 1 tablet Prilosec OTC [facility] [address] 20 MG Orally Once a day Oct 24, 2014 1 tablet Aspir-81 [facility] [address]-90 81 MG Orally Once a day 1 tablet Fetzima [facility] 1696-50[address]-63 20 mg orally every AM and NOON December 05, 2014 November 30, 2015 as directed Procedures Procedure Coding System Code Date FOLATE- VIT B12 AND FOLATE CPT-4 48802 April 03, 2015 VITAMIN B12 CPT-4 78309 April 03, 2015 KATLYN SCREEN CPT-4 96088 April 03, 2015 OFFICE VISIT, EST-MOD. COMPLEXITY (25 MIN) CPT-4 38474 April 03, 2015 RHEUMATOID FACTOR CPT-4 15077 April 03, 2015 Vital Signs Date/Time: April 03, 2015 Height 69 in Weight 159.8 lbs Temperature 97.7 F Blood Pressure Diastolic 64 mm Hg Blood Pressure Systolic 128 mm Hg Cardiac Monitoring Heart Rate 88 /min BMI 23.60 Index Respiratory Rate 16 /min Results No Known Results Summary Purpose [employer] Submission
--- OUTSIDE RECORDS SUMMARY | 2016-12-18 10:47 | XMS REPORT ---
Author Author Yury Patel Organization [employer] Address Unknown Phone Unavailable Care Team Providers Care Director Of Estate Name Role Phone Yury Patel CP Unavailable [...] End Date Status Dosage Tramadol HCl [facility] [address]-93 50 MG Orally every 6 hrs Jun 19, 2015 Jun 07, 2016 1 tablet as needed Results No Known Results Summary Purpose [employer] Submission
--- OUTSIDE RECORDS SUMMARY | 2016-12-18 10:47 | XMS REPORT ---
Author Author Yury Patel Organization [employer] Address Unknown Phone Unavailable Care Team Providers Care Corporate Counselor Name Role Phone Yury Patel CP Unavailable [...] Date End Date Status Dosage Tramadol HCl [facility] [address]-44 50 MG Orally every 6 hrs Apr 14, 2015 1 tablet as needed Results No Known Results Summary Purpose [employer] Submission
--- OUTSIDE RECORDS SUMMARY | 2016-12-18 10:47 | XMS REPORT ---
Author Author Yury Patel Organization [employer] Address Unknown Phone Unavailable Care Team Providers Care Driver Wheelchair Name Role Phone Yury Patel CP Unavailable [...] Active Problem Migraine headaches 346.90 Active Assessment Impaired fasting glucose R73.01 Active Assessment Fibromyalgia M79.7 Active Assessment Major depressive disorder, single episode, unspecified F32.9 Active Assessment Nicotine dependence, unspecified, uncomplicated F17.200 Active Medications Medication Code System Code Instructions Start Date End Date Status Dosage Trazodone HCl [facility] [address]-28 50 MG Orally Once a day May 01, 2015 1/2 to 2 tablets at bedtime Procedures Procedure Coding System Code Date OFFICE VISIT, EST-MOD. COMPLEXITY (25 MIN) CPT-4 53528 Sep 04, 2015 Vital Signs Date/Time: Sep 04, 2015 Height 69 in Weight 159.4 lbs Temperature 97.4 F Blood Pressure Diastolic 82 mm Hg Blood Pressure Systolic 130 mm Hg Cardiac Monitoring Heart Rate 74 /min BMI 23.54 Index Oximetry 98 % Respiratory Rate 16 /min Results No Known Results Summary Purpose [employer] Submission
--- OUTSIDE RECORDS SUMMARY | 2016-12-18 10:47 | XMS REPORT ---
Author Author Yury Patel Organization [employer] Address Unknown Phone Unavailable Care Team Providers Care Supervisor Twisting Department Name Role Phone Yury Patel CP Unavailable [...] Date End Date Status Dosage Tramadol HCl [facility] [address]-00 50 MG Orally every 6 hrs Jun 19, 2015 Jul 05, 2016 1 tablet as needed Results No Known Results Summary Purpose [employer] Submission
--- OUTSIDE RECORDS SUMMARY | 2016-12-18 10:47 | XMS REPORT ---
Author Author Yury Patel Organization [employer] Address Unknown Phone Unavailable Care Team Providers Care Computer Forensic Specialist Name Role Phone Yury Patel CP Unavailable [...] Date End Date Status Dosage Tramadol HCl [facility] [address]-30 50 MG Orally every 6 hrs Jun 19, 2015 Aug 22, 2015 1 tablet as needed Results No Known Results Summary Purpose [employer] Submission
--- OUTSIDE RECORDS SUMMARY | 2016-12-18 10:48 | XMS REPORT ---
Author Author Yury Patel Organization [employer] Address Unknown Phone Unavailable Care Team Providers Care Electromechanical Equipment Assembler Name Role Phone Yury Patel CP Unavailable [...] End Date Status Dosage Tramadol HCl [facility] [address]-34 50 MG Orally every 6 hrs 1 tablet as needed Results No Known Results Summary Purpose [employer] Submission
--- OUTSIDE RECORDS SUMMARY | 2016-12-18 10:48 | XMS REPORT ---
Author Author Yury Patel Organization [employer] Address Unknown Phone Unavailable Care Team Providers Care Scaleman Name Role Phone Yury Patel CP Unavailable [...] Status Dosage Tramadol HCl [facility] [address]-91 50 MG Orally every 6 hrs May 16, 2015 Jun 15, 2015 1 tablet as needed Results No Known Results Summary Purpose [employer] Submission
--- OUTSIDE RECORDS SUMMARY | 2016-12-18 10:48 | XMS REPORT ---
Author Author Yury Patel Organization [employer] Address Unknown Phone Unavailable Care Team Providers Care Door Furring Installer Name Role Phone Yury Patel CP Unavailable Allergies, Adverse Reactions, Alerts Substance Reaction Event Type Morphine Sulfate addicted Drug Allergy bee stings anaphylaxis Non Drug Allergy Problems Problem Type Condition ICD-9 Code Onset Dates Condition Status Assessment Depressive disorder, not elsewhere classified 311 Active Problem Syncope and collapse 780.2 Active Problem Chest pain, other 786.59 Active Problem Depressive disorder, not elsewhere classified 311 Active Problem Unspecified personality disorder 301.9 Active Problem Depressive disorder, not elsewhere classified 311 Active Problem Tobacco use disorder 305.1 Active Problem Adjustment disorder with mixed anxiety and depressed mood 309.28 Active Problem Migraine headaches 346.90 Active Problem Generalized osteoarthrosis, involving multiple sites 715.09 Active Assessment Leukocytopenia, unspecified 288.50 Active Assessment Pain in joint, pelvic region and thigh 719.45 Active Assessment Dehydration 276.51 Active Assessment Pain in joint, ankle and foot 719.47 Active Assessment Dizziness and giddiness 780.4 Active Assessment Other malaise and fatigue 780.79 Active Medications Medication Code System Code Instructions Start Date End Date Status Dosage Fetzima [facility] 3554[address]-27 20 mg orally every AM and NOON December 05, 2014 November 30, 2015 as directed Mobic [facility] [address]-61 15 MG Orally Once a day May 28, 2015 1 tablet [address] OTC [facility] [address] 20 MG Orally Once a day Oct 24, 2014 1 tablet Aspir-[address] [facility] [address]-21 81 MG Orally Once a day 1 [address] Tram[address]ol [address] [facility] [address]-45 50 MG Orally every 6 hrs May 13, 2015 1 tablet as needed Procedures Procedure Coding System Code Date OFFICE VISIT, EST-MOD. COMPLEXITY (25 MIN) CPT-4 46254 Apr 24, 2015 Vital Signs Date/Time: Apr 24, 2015 Height 69 in Weight 158.0 lbs Temperature 98.2 F Blood Pressure Diastolic 84 mm Hg Blood Pressure Systolic 130 mm Hg Cardiac Monitoring Heart Rate 73 /min BMI 23.33 Index Oximetry 97 % Respiratory Rate 18 /min Results No Known Results Summary Purpose [employer] Submission
--- OUTSIDE RECORDS SUMMARY | 2016-12-18 10:48 | XMS REPORT ---
Author Author Vanessa Cintron Organization [employer] Address Unknown Phone Unavailable Care Team Providers Care Fuel Handler Name Role Phone Vanessa Cintron CP Unavailable Allergies No Known Allergies Problems Problem Type Condition ICD-9 Code Onset Dates Condition Status Problem Generalized osteoarthrosis, involving multiple sites 715.09 Active Problem Tobacco use disorder 305.1 Active Problem Migraine headaches 346.90 Active Problem Chest pain, other 786.59 Active Problem Adjustment disorder with mixed anxiety and depressed mood 309.28 Active Problem Syncope and collapse 780.2 Active Medications No Known Medications Results No Known Results Summary Purpose [employer] Submission
--- OUTSIDE RECORDS SUMMARY | 2016-12-18 10:48 | XMS REPORT ---
Author Author Yury Patel Organization [employer] Address Unknown Phone Unavailable Care Team Providers Care Awake Overnight Counselor Name Role Phone Yury Patel CP [...] Instructions Start Date End Date Status Dosage [facility] [id number] 7.5 Orally Once a day 1 tablet Results No Known Results Summary Purpose [employer] Submission
--- OUTSIDE RECORDS SUMMARY | 2016-12-18 10:48 | XMS REPORT ---
Author Author Yury Patel Organization [employer] Address Unknown Phone Unavailable Care Team Providers Care Machine Shop Inspector Name Role Phone Yury Patel CP Unavailable [...] Date End Date Status Dosage Tramadol HCl [facility] [address]-94 50 MG Orally every 6 hrs Jun 19, 2015 January 31, 2016 1 tablet as needed Results No Known Results Summary Purpose [employer] Submission
--- OUTSIDE RECORDS SUMMARY | 2016-12-18 10:48 | XMS REPORT ---
Author Author Yury Patel Organization [employer] Address Unknown Phone Unavailable Care Team Providers Care Commissioning Specialist Name Role Phone Yury Patel CP [...] Date End Date Status Dosage Tramadol HCl [facility] [address]-46 50 MG Orally every 6 hrs Jun 19, 2015 May 03, 2016 1 tablet as needed Results No Known Results Summary Purpose [employer] Submission
--- NOTE | 2016-12-18 10:50 | NUR ---
EKG EKG TAKEN AND GIVEN TO DR VILLALPANDO
--- NOTE | 2016-12-18 11:00 | NUR ---
IVL IVL STARTED AND BLOOD COLLETED
[2016-12-18] MEDS ORDERED: TRAM50TA4 PO (11:04)
[2016-12-18] MEDS ORDERED: CELE100C PO (11:05)
[2016-12-18] MEDS ORDERED: OMEP20TA2 PO (11:06)
[2016-12-18 11:07] LABS: BASOPHILS % (AUTO) 0.6 % (0-2); EOSINOPHILS # (AUTO) 0.1 T/MM3 (0-0.5); EOSINOPHILS % (AUTO) 1.4 % (0-4); HCT - HEMATOCRIT 47.7 % (41-53); HGB - HEMOGLOBIN 16.1 GM/DL (13.5-17.5); IMMATURE GRANULOCYTE # (AUTO) 0.01 T/MM3 (0.00-0.03); IMMATURE GRANULOCYTE % (AUTO) 0.3 % (0.0-0.5); LYMPHOCYTES # (AUTO) 1.3 T/MM3 (1-4.8); LYMPHOCYTES % (AUTO) 34.7 % (23-45); MEAN CORPUSCULAR HGB 30.3 UUG (26-34); MEAN CORPUSCULAR HGB CONC(MCHC 33.8 GM/DL (31-37); MEAN CORPUSCULAR VOLUME 89.8 UM3 (80-100); MEAN PLATELET VOLUME 9.5 UM3 (9.4-12.4); MONOCYTES # (AUTO) 0.3 T/MM3 (0-0.8); MONOCYTES % (AUTO) 7.8 % (0-9.0); NEUTROPHILS % (AUTO) 55.2 % (33-66); RED BLOOD COUNT 5.31 M/MM3 (4.50-5.90); WBC - WHITE BLOOD COUNT 3.6 T/MM3 (4.5-11.0)
[2016-12-18] MEDS ORDERED: MULT-933 PO (11:07)
[2016-12-18] MEDS ORDERED: MENT120G15 TOP (11:07)
--- OUTSIDE RECORDS SUMMARY | 2016-12-18 11:17 | XMS REPORT | Continuity of Care Document ---
Author Author [facility] Organization [facility] Address Unknown Phone Unavailable Support Name Relationship Address Phone RAYNA GROVE DO Caregiver [address] [place] [address] CLARK BARBARA Janak Next Of Kin [address] [place] [address] Insurance Providers Payer Name Policy Number Subscriber [...] F (96.8 - 99.1) Temperature (Calculated Celsius) [phone] degrees C (36.0 - 37.3) Pulse Rate [...] Has specimen been collected/obtained? Y Urine Specific [place] September 09, 2014 12:28pm 1.010 L - [...] Encounters Encounter Location Date/Time Departed Emergency Room [facility] 09/09/14 11:21am Recent Diagnosis
--- OUTSIDE RECORDS SUMMARY | 2016-12-18 11:17 | XMS REPORT | Continuity of Care Document ---
Author Author Organization Address Unknown Phone Unavailable Allergies Active Description [...] Status Pt. Type Provider Facility Loc./Unit Complaint [id number] 09/09/2014 17:53:00 2014 13:37:00 DIS Inpatient Tacho CABRERA, J [facility] W.10TS
[2016-12-18 11:18] LABS: ALBUMIN 4.2 G/DL (3.5-5.0); ALBUMIN/GLOBULIN RATIO 1.4 RATIO (1.1-2.2); ALKALINE PHOSPHATASE 74 U/L (38-126); ALT (SGPT) 40 U/L (21-72); ANION GAP 11 MEQ/L (5-15); AST (SGOT) 32 U/L (17-59); BUN/CREATININE RATIO 20 RATIO (6-26); CALCIUM 9.3 MG/DL (8.4-10.2); CHLORIDE 105 MEQ/L (98-107); CO2 - CARBON DIOXIDE 26 MEQ/L (22-30); CREATININE 0.8 MG/DL (0.8-1.5); GLOMERULAR FILTRATION RATE 103; GLUCOSE 101 MG/DL (75-110); POTASSIUM 4.6 MEQ/L (3.6-5); SODIUM 142 MEQ/L (134-144); TOTAL PROTEIN 7.3 G/DL (6.3-8.2)
--- NOTE | 2016-12-18 11:40 | DI ---
Indication: ITS.REASON: Left-sided chest pain radiating down the left arm PROCEDURE: CHEST 1 VIEW: Encounter: Initial Comparison: September 24, 2015 FINDINGS: The lungs are clear. There is no abnormal airspace opacity, pleural effusion or pneumothorax identified. The heart size, pulmonary vasculature and mediastinum are within normal limits. No significant skeletal abnormality is seen. IMPRESSION: No acute cardiopulmonary abnormality. .
--- NOTE | 2016-12-18 12:35 | NUR ---
CONSULT Aneta VILLALPANDO TALKING TO DR FELDER
--- NOTE | 2016-12-18 12:41 | ERPDOC ---
Departure Disposition Decision Date: Dec 18, 2016 Disposition Decision Time: 12:30 Disposition: 02 TO [facility] Impression Impression Impression: Primary Impression: Chest pain Chest pain type: unspecified Qualified Codes: R07.9 - Chest pain, unspecified Severity: Moderate Condition: Improved Seen By: Physician only Referrals: JANE FELDER DO (Family) Problems/Meds/Labs Reviewed?: Yes Medications reviewed and manag: Yes Follow up care ordered?: Yes Mental Status: Alert, Oriented HPI - General Medical General Chief Complaint: Chest Pain Stated Complaint: WEAK, CP Time Seen by Provider: 10:53 Source: patient Exam Limitations: no limitations HPI - General Medical Initial Comments 51-year-old male presents the emergency department with a chief complaint of chest discomfort. Patient has been experiencing intermittent chest discomfort over the past couple of months. Patient states that the discomfort comes with heavy exertion. Pain is mild. It is dull and aching. Occasionally radiates toward the left arm. Patient denies any other complaints or associated symptoms. He notes that the symptoms improved with rest. Patient does use tobacco. Occurred At: home Onset: Gradual, Changing over time Allergies: Coded Allergies: No Known Drug Allergies (Verified Allergy, Unknown, 12/18/16) morphine (Verified Adverse Reaction, Unknown, PMH ADDICTION TO MORPHINE, ) Past History Past Medical History Pt denies signifigant PMH Hx Echocardiogram: No Respiratory: other Musculoskeletal: neck pain Surgical History Denies Surgeries General: neck Joint: shoulder Family History Family PMH: FOUND: [place], diabetes, hypertension Vaccines Hx Influenza Vaccination: No Hx Tetanus, Diptheria, Pertuss: No Social History Smoking Status: Never smoker Does patient use chewing tobac: Yes Substance Use Type: does not use Alcohol Intake: none Sexuality: female partner Review of Systems Constitutional Constitutional: DENIES: chills, fever Eyes General: DENIES: erythema, exudate Lids/Accessories: DENIES: erythema, swelling Vision: DENIES: acuity, blurring ENMT Ears: DENIES: drainage, erythema Hearing: DENIES: hearing loss Balance: DENIES: ataxia, falling to one side Sinuses: DENIES: congestion, pain Nose: DENIES: nosebleeds, pain Mouth/Throat: DENIES: painful swallowing, sore throat Teeth: DENIES: pain Jaw: DENIES: pain Cardiovascular Cardiac: DENIES: chest pain, dyspnea on exertion Rhythm/Rate: DENIES: irregular beat, palpitations Vascular: DENIES: pedal edema, unilateral swelling Pulmonary Respiratory: DENIES: cough, dyspnea, pleuritic chest pain, sputum GI Upper Abdomen: DENIES: nausea, pain, vomiting Lower Abdomen: DENIES: diarrhea, pain General: DENIES: dysuria, frequency Musculoskeletal General: DENIES: joint pain, tenderness Integumentary Skin: DENIES: itching, rash Neurological General: DENIES: headache, numbness, weakness Psychiatric Psychiatric: DENIES: emotional instability, suicidal ideation/attempt Endocrine Endocrine: DENIES: polydipsia, polyphagia Hematologic/Lymphatic Hematologic/Lymphatic: DENIES: frequent nosebleeds, lymphadenopathy Allergic/Immunological Allergic/Immunoligical: DENIES: allergic reactions, hives Physical Exam General General Nourishment: well nourished, well developed, appears stated age, no acute distress, adult General Body Habitus: well groomed Vitals and Pain First Documented Vital Signs Date Time Temp Pulse Resp B/P Pulse Ox O2 Delivery O2 Flow Rate FiO2 12/18/16 10:42 97.9 76 20 154/91 100 Room Air Weight: Kilograms: 75.300 Height (feet): 5 Height (inches): 9.50 Triage Pain Scale: RN VS reviewed by Provider: Yes Normal Exams: Head: Normocephalic w/o trauma Eyes: Pupils are PERRLA w/ EOMI, No scleral icterus, irritation, or foreign bodies noted ENMT: No facial trauma, nasal exudates, pharyngeal erythema, or exudates are noted Dental: No fractured, loose, or missing teeth noted Neck: Full range of motion, without adenopathy, JVD, bruits or thyromegaly Chest/Resp: Clear all bennett, with good airflow, and symmetry bilaterally CV: Regular rate and rhythm, without murmur or gallop, Pulses 2+ all extremities, capillary refill, <2 seconds all ext., no pedal edema noted Abdomen: Bowel sounds positive, soft, non-tender, non-distended, no hepatosplenomegaly, masses or bruits noted Lymphatic: No lymphadenopathy, or lymphedema noted Musculoskeletal: No tenderness, or deformity noted, good range of motion, all extremities Integumentary: No rashes, hives, or bruising noted, hair and nails, without abnormality Neurologic: Patient is alert, and oriented, cranial nerves, motor/sensory/ cerebellar, exams w/o gross deficits, to observation Psychiatric: Patient exhibits, appropriate attention, emotion and affect Musculoskeletal (brief) Comments Chest wall is tender to palpation. NO rash or crepitus. Differential Diagnoses Considering: Acute OK, Medication Effect, Metabolic, Other (Anxiety) Progress Results/Orders Orders Procedure Category Date Status Time Cbc W/Auto LAB 12/18/16 Complete Diff-Reflex Manual Cmp - Comprehensive LAB 12/18/16 Complete Metabolic Troponin I W LAB 12/18/16 Complete Hemolysis Index EKG EKG 12/18/16 Taken Chest 1 View RAD 12/18/16 Resulted 10:53 D-Dimer LAB 12/18/16 Complete 11:43 Lab Results Laboratory Tests Test 12/18/16 10:56 12/18/16 10:57 D-Dimer < 150NG/ML White Blood Count 3.6T/MM3 Red Blood Count 5.31M/MM3 Hemoglobin 16.1GM/DL Hematocrit 47.7% Mean Corpuscular Volume 89.8UM3 Mean Corpuscular Hemoglobin 30.3UUG Mean Corpuscular Hemoglobin Concent 33.8GM/DL RDW Standard Deviation 44.4FL Platelet Count 168T/MM3 Mean Platelet Volume 9.5UM3 Immature Granulocyte % (Auto) 0.3% Neutrophils (%) (Auto) 55.2% Lymphocytes (%) (Auto) 34.7% Monocytes (%) (Auto) 7.8% Eosinophils (%) (Auto) 1.4% Basophils (%) (Auto) 0.6% Absolute Immature Granulocyte (auto 0.01T/MM3 Absolute Neutrophils (auto) 2.0T/MM3 Absolute Lymphocytes (auto) 1.3T/MM3 Absolute Monocytes (auto) 0.3T/MM3 Absolute Eosinophils (auto) 0.1T/MM3 Absolute Basophils (auto) 0.0T/MM3 Turbidity < 20 Sodium Level 142MEQ/L Potassium Level 4.6MEQ/L Chloride Level 105MEQ/L Carbon Dioxide Level 26MEQ/L Anion Gap 11MEQ/L Blood Urea Nitrogen 16.0MG/DL Creatinine 0.8MG/DL Glomerular Filtration Rate Calc 103 BUN/Creatinine Ratio 20RATIO Glucose Level 101MG/DL Calculated Osmolality 274MOSM/KG Calcium Level 9.3MG/DL Total Bilirubin 0.60MG/DL Icterus Index < 2 Aspartate Amino Transf (AST/SGOT) 32U/L Alanine Aminotransferase (ALT/SGPT) 40U/L Alkaline Phosphatase 74U/L Troponin I < 0.012ng/ml Total Protein 7.3G/DL Albumin 4.2G/DL Globulin 3.1G/DL Albumin/Globulin Ratio 1.4RATIO Chemistry Specimen Hemolysis < 15 Medications Progress Progress Labs / imaging were discussed in detail with the patient and questions are answered. Patient is not given sublingual nitroglycerin due to use of a recent phosphodiesterase inhibitor. Patient is uncomfortable accepting any analgesic pain medication intravenously. Patient is given Ultram 50 mg by mouth times one which he takes on a regular basis. Patient is uncomfortable being discharged home at this time. Patient is discussed with his primary care physician who recommends admission to the hospital. Patient is in agreement with the current plan of management. Patient is given 324 mg of aspirin by mouth times one. Patient is admitted to the hospital in improved condition. No further orders from accepting physician who is in agreement with the current plan of management. EKG EKG : Rate: 60-100 Rhythm: sinus Elbe: normal QRS: normal Intervals: normal ST/T: normal Interpreted by: signing physician (EKG similar to EKG from 09/09/14.) Xray Xray : Xray: CXR Portable Interpretation: Normal, Reviewed Written Report ROHAN VILLALPANDO DO Dec 18, 2016 12:41
--- NOTE | 2016-12-18 12:55 | NUR ---
REPORT REPORT TO [facility]
[2016-12-18] MEDS ORDERED: TRAMADOL 50 MG TABLET PO ONE (13:00)
--- NOTE | 2016-12-18 13:03 | NUR ---
ADMISSION TO MEDICAL UNIT VSS. RA. DENIES CHEST PAIN. ORIENTED TO ROOM.
--- OUTSIDE RECORDS SUMMARY | 2016-12-18 13:04 | XMS REPORT | Continuity of Care Document ---
Author Author [facility] Organization [facility] Address Unknown Phone Unavailable Allergies Active Description [...] Status Pt. Type Provider Facility Loc./Unit Complaint [id number] 09/09/2014 17:53:00 2014 13:37:00 DIS Inpatient Tacho CABRERA, J [facility] W.10TS
--- OUTSIDE RECORDS SUMMARY | 2016-12-18 13:04 | XMS REPORT | Continuity of Care Document ---
Author Author [facility] Organization [facility] Address Unknown Phone Unavailable Support Name Relationship Address Phone RAYNA GROVE DO Caregiver [address] [place] [address] CLARK BARBARA Janak Next Of Kin [address] [place] [address] Insurance Providers Payer Name Policy Number Subscriber [...] F (96.8 - 99.1) Temperature (Calculated Celsius) 36.47191 degrees C (36.0 - 37.3) Pulse Rate [...] Has specimen been collected/obtained? Y Urine Specific [place] September 09, 2014 12:28pm 1.010 L - [...] Encounters Encounter Location Date/Time Departed Emergency Room [facility] 09/09/14 11:21am Recent Diagnosis
--- NOTE | 2016-12-18 13:05 | NUR ---
ADMIT PT TO ROOM 140 PER WC. CARE ASSUMED BY EFRAIN [facility]
[2016-12-18 13:14] VITALS: BP 140/85; PULSE 58; RESP 18; TEMP 96.4; O2SAT 100
[2016-12-18 13:15] VITALS: Ht 176.5 cm; Wt 74.9 kg
[2016-12-18 13:50] LABS: BLOOD, URINE NEGATIVE (NEGATIVE); LEUKOCYTE ESTERASE ,URINE NEGATIVE (NEGATIVE); NITRITE,URINE NEGATIVE (NEGATIVE); UROBILINOGEN,URINE 0.2 EU/DL (NORMAL)
[2016-12-18 13:53] LABS: COLOR,URINE COLORLESS (YELLOW)
--- NOTE | 2016-12-18 13:54 | HPPDOC ---
HPI - Adult Date DATE: 12/18/16 TIME: 13:15 General Chief Complaint: chest pain History of Present Illness patient is a pleasant 51yo male known to our clinic. he was in his usual state of health until about 2 months ago. he is a chronic tobacco user. at that time he started in with left sided chest pain radiating down left arm with SOA on exertion and especially after sex. this would be associated with some lightheadedness also. he has also noticed trouble word-finding after this for a while. he would usually rest for 2 or 3 minutes and it would predictably adri. the most recent episode of this was 2 or 3 days ago. this time it never did completely adri through like it usually had before. since then he's had moderate lightheadedness as well as a dull chest ache. he was seen in the ER today for this and it was noted a cmp, troponin, d-dimer, EKG, CXR were unremarkable. a cbc showed a wbc count of 3.5 and was otherwise unremarkable. given the nature of his symptoms it was opted to admit for observation and further workup. vitals have been stable. as I see the patient he is stable but his symptoms unchanged over the last 2 to 3 days. patient denies fevers, chills, URI symptoms, vertigo, ear pain, sinus pain, sore throat. he is very fatigued during these episodes. no syncope. lightheadedness can happen at any time and isn't necessarily orthostatic but is certainly more prominent on exertion. he has had occasional bifrontal headaches with this as well with moderate intensity. he doesn't have one right now. no photophobia or meningeal symptoms. no other focal neurologic deficits , stroke symptoms, cranial nerve symptoms. no palpitations, orthopnea, PND, edema. no cough, sputum production, hemoptysis. no heart failure symptoms otherwise. no ab pain, GERD symptoms, nausea, vomiting, diarrhea, falls, trauma , injuries. no hematemesis, coffee ground emesis, melena, BRBPR, diarrhea, constipation, dysuria, hematuria, urinary/bowel incontinence, flank pain, nocturia, other urinary symptoms. no psychiatric changes. no homicidal/ suicidal ideations. see above and below for further ROS. Past Medical History Past Medical History -bph -osteoarthritis -depression -anxiety -erectile dysfunction -GERD -chronic tobaccoism (chewing tobacco) -remote history of alcohol and polysubstance abuse Surgical History Patient's Surgical History: -left shoulder surgery in 1990. -neck surgery in 1993 Current Medications Home Meds Reported Medications Menthol/Aloe Vera/Vitamin E (Flexall 7% Gel) 113 Gm Gel..gram., 1 APPLIC TOP PRN 12/18/16 Multivitamin (Multi-Day Vitamins) 1 Each Tablet, 1 TAB PO QOD 12/18/16 Omeprazole Magnesium (Prilosec Otc) 20 Mg Tablet.dr, 20 MG PO DAILY 12/18/16 Celecoxib (Celebrex) 100 Mg Capsule, 100 MG PO BID 12/18/16 Tramadol HCl (Tramadol HCl) 50 Mg Tablet, 50 MG PO Q6HR Y for PAIN 12/18/16 Allergies: Coded Allergies: No Known Drug Allergies (Verified Allergy, Unknown, 12/18/16) morphine (Verified Adverse Reaction, Unknown, [facility] ADDICTION TO MORPHINE, ) Family History Family History: -father alive with history of pancreatic cancer and CVA -mother alive and has CAD -panernal grandfather years ago and had COPD -paternal grandmother alive -maternal grandfather years ago and had CAD -materanal granmother has . -diabetes in siblings -other siblings relatively healthy Social History Sexuality: female partner Social History Comments -long time used of chewing tobacco -no alcohol use but had issues with alcoholism years ago. -no illicit substance use but did have issues years ago. -lives at home with -livestock farmer for a living. Review of Systems Constitutional: REPORTS: dizziness (see HPI.), fatigue, see HPI, weakness ( generalized, mild. ), DENIES: appetite decrease, chills, fever, night sweats, syncope, weight gain, weight loss Eyes General: REPORTS: see HPI Comments no vision changes. ENMT Ears: REPORTS: see HPI Comments no URI symptoms. see above HPI. Cardiovascular chest pain, dyspnea on exertion, see HPI, DENIES: orthopnea, paroxysmal nocturnal dysp Rhythm/Rate: DENIES: bradycardia, irregular beat, palpitations, tachycardia Vascular: see HPI, DENIES: pedal edema, unilateral swelling Comments no new VTE risk factors. Pulmonary Respiratory: dyspnea, see HPI, DENIES: cough, pleuritic chest pain, sputum, tachypnea GI Upper Abdomen: see HPI, DENIES: abdominal swelling, dysphagia, food intolerances, heartburn/indigestion, hematemesis, nausea, pain, vomiting Lower Abdomen: see HPI, DENIES: blood in stool, constipation, diarrhea, melena , pain, painful BM Comments see HPI. General: see HPI, DENIES: burning, dysuria, frequency, hematuria, incontinence , nocturia, oliguria, pain, polyuria, urgency Male: see HPI Musculoskeletal General: see HPI Comments no new or changing musculoskeletal changes or pain. Integumentary Skin: see HPI Comments no new rashes or skin changes. Neurological General: headache (see HPI.), see HPI Comments ROS negative for other focal neurologic deficits, stroke symptoms, seizure symptoms, meningeal symptoms, photophobia. Psychiatric Psychiatric: see HPI, DENIES: suicidal ideation/attempt Endocrine see HPI, DENIES: heat/cold intolerance Comments no thyroid symptoms. Hematologic/Lymphatic see HPI Comments no abnormal bleeding. Allergic/Immunological see HPI Comments see above for allergies and ADR's. Physical Exam General General Nourishment: well nourished, well developed, apparent age, adult General Body Habitus: well groomed Vital Signs Vital Signs Date Time Temp Pulse Resp B/P Pulse Ox O2 Delivery O2 Flow Rate FiO2 12/18/16 13:14 96.4 58 18 140/85 Room Air 12/18/16 12:56 100 Height (Feet): 5 Height (Inches): 9.50 Telemetry Rhythm: Sinus Rhythm Eyes Brief: FOUND: EOMI, PERRL, NOT FOUND: scleral icterus, trauma Comments mucous membranes moist. TM's clear bilaterally. external canals normal b/l at this time. no mastoid tenderness b/l at this time. throat clear. no sinus pain b/l to palpation. Neck Brief: FOUND: midline, NOT FOUND: JVD, adenopathy, carotid bruits, nuchal rigidity, spasm, tenderness, thyromegaly, tracheal deviation Comments no photophobia. no clinical evidence of meningitis at this time. Respiratory Brief: FOUND: clear all bennett, equal bilaterally, symmetrical, NOT FOUND: rales, spasm, tenderness, wheezes Comments no crackles b/l at this time. moving air well. lung sounds heard normally in all lung bennett b/l at this time. no respiratory distress, retractions, accessory muscle use. Cardiovascular (brief) Cardiac Brief: FOUND: regular rate, regular rhythm, NOT FOUND: click, gallop, murmur, pedal edema, peripheral edema, rub Comments clinically well perfused in all 4 extremities at this time. no LE edema. legs symmetrical and compartments soft b/l in LE's. Abdomen (brief) Abdominal Brief: FOUND: BS normo active x4, soft (X4.), NOT FOUND: distended ( X4.), hepatosplenomegaly, pulsatile mass, tender (X4.) Comments no guarding, rebound, rigidity. (brief) Comments no tenderness over bladder area. Lymphatic (brief) Lymphatic Brief: NOT FOUND: lymphedema Musculoskeletal (brief) Musculoskeletal Brief: NOT FOUND: deformity, loss of motion Integumentary (brief) Integumentary Brief: FOUND: dry, pink, warm, NOT FOUND: lesions, rash Comments to uncovered areas. Neurologic (brief) Neurological Brief: FOUND: DTR 2/4 all extremities, cranial 2-12 intact, motor (normal and symmetrical b/l X4 extremities. ), sensory (normal and symmetrical b/l X4 extremities. ), NOT FOUND: facial droop, ptosis Comments PERRLA. EOMI. concensual reflex in tact. gait normal. speech and understanding normal. no nystagmus. Neurologic RN Documented GCS Eye Opening: Verbal: Motor: Total: Psychiatric (brief) FOUND: alert, attentive, normal affect, oriented Laboratory Laboratory Tests Test 12/18/16 10:56 12/18/16 10:57 D-Dimer < 150NG/ML White Blood Count 3.6T/MM3 Red Blood Count 5.31M/MM3 Hemoglobin 16.1GM/DL Hematocrit 47.7% Mean Corpuscular Volume 89.8UM3 Mean Corpuscular Hemoglobin 30.3UUG Mean Corpuscular Hemoglobin Concent 33.8GM/DL RDW Standard Deviation 44.4FL Platelet Count 168T/MM3 Mean Platelet Volume 9.5UM3 Immature Granulocyte % (Auto) 0.3% Neutrophils (%) (Auto) 55.2% Lymphocytes (%) (Auto) 34.7% Monocytes (%) (Auto) 7.8% Eosinophils (%) (Auto) 1.4% Basophils (%) (Auto) 0.6% Absolute Immature Granulocyte (auto 0.01T/MM3 Absolute Neutrophils (auto) 2.0T/MM3 Absolute Lymphocytes (auto) 1.3T/MM3 Absolute Monocytes (auto) 0.3T/MM3 Absolute Eosinophils (auto) 0.1T/MM3 Absolute Basophils (auto) 0.0T/MM3 Turbidity < 20 Sodium Level 142MEQ/L Potassium Level 4.6MEQ/L Chloride Level 105MEQ/L Carbon Dioxide Level 26MEQ/L Anion Gap 11MEQ/L Blood Urea Nitrogen 16.0MG/DL Creatinine 0.8MG/DL Glomerular Filtration Rate Calc 103 BUN/Creatinine Ratio 20RATIO Glucose Level 101MG/DL Calculated Osmolality 274MOSM/KG Calcium Level 9.3MG/DL Total Bilirubin 0.60MG/DL Icterus Index < 2 Aspartate Amino Transf (AST/SGOT) 32U/L Alanine Aminotransferase (ALT/SGPT) 40U/L Alkaline Phosphatase 74U/L Troponin I < 0.012ng/ml Total Protein 7.3G/DL Albumin 4.2G/DL Globulin 3.1G/DL Albumin/Globulin Ratio 1.4RATIO Chemistry Specimen Hemolysis < 15 Microbiology no new information at this time. EKG see above and below. Radiology see above and below. Concerns For Adverse Events see below. Sepsis Diagnostic Criteria Comments not applicable. Assessment & Plan Assessment chest pain and possible unstable angina headache, lightheadedness and trouble wordfinding. mild leukopenia of uncertain etiology osteoarthritis -admit to outpatient/observation, routine vitals with call parameters, oxygen as needed, I's and O's, daily weights, telemetry, cardiac diet. -follow troponins X2 more sets with call parameters. check CK, tsh, mg, phos, coags, UA. see above for other testing down earlier today. -cbc, cmp, lipids in the AM. -echocardiogram, CT head without contrast, bilateral carotid dopplar ultrasound now. -Dr. Valentine, cardiology consulted. I don't see an indication for full dose anticoagulation (lovenox or heparin) right now given negative troponins and EKG but will discuss with him. -patient already given aspirin 324mg PO in ER today. start ASA 81mg PO daily enterically coated, low dose metoprolol, low dose lisinopril, low dose statin for now. hold parameters on the bp meds provided. start lovenox SQ at DVT prophylaxis dose if cardiology ok with this. start IV NS at 50ml/hr. start SL nitro prn. -hold home celebrex, multivitamin, flexall cream, tramadol. patient has allergy/ADR to other opiods and thus can't start morphine or fentanyl prn. -further management pending the above. GERD -continue home omeprazole. all other chronic medical conditions stable and no changes to plan of care at this time. ppx -SCD's and SQ lovenox at DVT prophylaxis dose for DVT prophylaxis. -continue above ppi from home and above diet for GI ppx at this time. -FULL CODE -dispo heavily dependent on the above but hopefully home tomorrow. Code Status JANE FELDER DO Dec 18, 2016 13:24
[2016-12-18] MEDS ORDERED: NITROGLYCERIN 0.4 MG SUBLINGUAL TABLET SL PRN (14:00)
[2016-12-18] MEDS ORDERED: NORMAL SALINE 1,000 ML IV SCH (14:00)
--- NOTE | 2016-12-18 14:11 | DI ---
Indication: ITS.REASON: headaches, trouble with wordfinding. PROCEDURE: CT HEAD W/O CONTRAST: Encounter: Initial Comparison: February 07, 2015 Technique: Axial CT images through the head were performed without contrast. Iterative Reconstruction dose reducing technique was utilized. FINDINGS: The ventricles are of normal size, shape, and configuration for the patient's age. There is no evidence of acute intracranial hemorrhage, midline displacement, or mass effect. The CT attenuation of the brain parenchyma is normal within the cerebellum, brain stem, and cerebral hemispheres. The tympanic cavities and mastoid air cells are free of appreciable disease. There are no definite fractures of the skull base, calvarium, or visualized portion of the midface. IMPRESSION: No CT evidence of acute intracranial abnormality. Stable head CT. .
[2016-12-18 14:14] LABS: BACTERIA,URINE NONE SEEN (NEGATIVE); RBC,URINE NONE SEEN /HPF (0-3); SQUAMOUS EPITHELIAL CELL,UR NONE SEEN; WBC,URINE NONE SEEN /HPF (0-5)
[2016-12-18 15:39] VITALS: BP 126/78; PULSE 69; RESP 18; TEMP 95.2; O2SAT 97
--- NOTE | 2016-12-18 15:44 | DI ---
Indication: ITS.REASON: trouble wordfinding. PROCEDURE: US CAROTID DOPP COMPLETE: TECHNIQUE: Grayscale, color and duplex Doppler imaging was performed of the carotid systems bilaterally. Velocities in cm/sec - validated velocity measurements with angiographic measurements, velocity criteria are extrapolated from diameter data as defined by the Society of Radiologists in Ultrasound Consensus Conference Radiology 2003; 229;340-346. RIGHT: PSV ICA 75 EDV ICA 27.6 PSV CCA 101 EDV CCA 24.4 SVR 0.7 PSV ECA 104 ICA Diameter reduction 0% (<0.8)% LEFT: PSV ICA 78.2 EDV ICA 14.7 PSV CCA 125 EDV CCA 38.7 SVR 0.6 PSV ECA 83.8 ICA Diameter reduction 0% (<0.8)% The right vertebral artery is patent with cephalic flow. The left vertebral artery is patent with cephalic flow. No significant atherosclerotic plaque. No velocity elevation. IMPRESSION: No hemodynamically significant carotid stenosis. .
--- NOTE | 2016-12-18 17:01 | CONSPD ---
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 Felder who was last seen by Dr. Call in September of 2014 for chest pain and had normal echo and stress test at that time. He was in his usual state of health until about 2 months ago. He started having left sided chest pain radiating down left arm with SOA on exertion and especially after sex, associated with some lightheadedness. He has also noticed trouble word-finding after this for a while. He would usually rest for 2 or 3 minutes and it would predictably adri. On Thursday when this happened, it never did completely adri like it usually had before. Since then he reports moderate lightheadedness as well as a dull chest ache. He was seen in the ER today for this and it was noted a cmp, troponin, d-dimer, EKG, CXR were unremarkable. Given the nature of his symptoms it was opted to admit for observation and further workup. He is examined in his room on Medical. He has reproducible left sided chest pain and reports shortness of breath, weakness, lightheadedness and fatigue. He denies syncope, fevers, chills, sore throat, cough, palpitations, orthopnea, PND , edema, N/V/D. Past Medical History Past Medical History Respiratory: other Musculoskeletal: neck pain Surgical History General: neck Joint: shoulder Current Medications Home Meds Active Scripts Aspirin *EC* (Aspirin EC) 81 Mg Tablet., 81 MG PO DAILY for 30 Days, #30 TAB 2 Refills Prov:JANE FELDER DO 12/19/16 Nitroglycerin (Nitrostat) 0.4 Mg Tablet, 0.4 MG SL Q5MIN Y for CHEST PAIN for 30 Days, #30 TAB 2 Refills may use X3. if you need this medication then call 911. Prov:JANE FELDER DO 12/19/16 Reported Medications Multivitamin (Multi-Day Vitamins) 1 Each Tablet, 1 TAB PO QOD 12/18/16 Omeprazole Magnesium (Prilosec Otc) 20 Mg Tablet.dr, 20 MG PO DAILY 12/18/16 Celecoxib (Celebrex) 100 Mg Capsule, 100 MG PO BID 12/18/16 Tramadol HCl (Tramadol HCl) 50 Mg Tablet, 50 MG PO Q6HR Y for PAIN 12/18/16 Discontinued Reported Medications Menthol/Aloe Vera/Vitamin E (Flexall 7% Gel) 113 Gm Gel..gram., 1 APPLIC TOP PRN 12/18/16 Allergies: Coded Allergies: No Known Drug Allergies (Verified Allergy, Unknown, 12/18/16) morphine (Verified Adverse Reaction, Unknown, [facility], ) Family History FOUND: CVA (dad), [place], diabetes, hypertension Vaccines fall Social History Smoking Status: Never smoker Does patient use chewing tobac: Yes Patient last used chewing toba: Dec 18, 2016 # of Packs/Tins per Day: 1/3 Substance Use Type: does not use Alcohol Intake: none Marital Status: Sexuality: female partner Advance Directives: No DPOA for Healthcare Only Review of Systems Constitutional: REPORTS: dizziness, fatigue, weakness, DENIES: chills, fever Eyes Vision: DENIES: double vision ENMT Balance: DENIES: vertigo Sinuses: NOT FOUND: rhinorrhea Mouth/Throat: DENIES: sore throat Cardiovascular chest pain, dyspnea on exertion, DENIES: murmur, orthopnea, paroxysmal nocturnal dysp Rhythm/Rate: DENIES: irregular beat, palpitations, tachycardia Vascular: DENIES: pedal edema Pulmonary Respiratory: DENIES: cough, sputum GI Upper Abdomen: DENIES: nausea, vomiting Lower Abdomen: DENIES: diarrhea General: DENIES: dysuria Integumentary Skin: DENIES: rash, sores Neurological General: headache, weakness, DENIES: numbness, seizures, syncope All Other Systems All Other Systems: Reviewed (remainder of 10-point ROS Neg.) Physical Exam General General Nourishment: well nourished, well developed, apparent age Vital Signs Vital Signs Date Time Temp Pulse Resp B/P Pulse Ox O2 Delivery O2 Flow Rate FiO2 12/18/16 15:39 95.2 69 18 126/78 97 Room Air Height (Feet): 5 Height (Inches): 9.50 Telemetry Rhythm: Sinus Rhythm ENMT Brief: FOUND: mucosa moist Neck Brief: NOT FOUND: JVD, carotid bruits Respiratory Brief: FOUND: clear all bennett, equal bilaterally, NOT FOUND: rales , wheezes Cardiovascular (brief) Cardiac Brief: FOUND: regular rate, regular rhythm, NOT FOUND: click, gallop, murmur, pedal edema Abdomen (brief) Abdominal Brief: FOUND: BS normo active x4, soft, NOT FOUND: tender Integumentary (brief) Integumentary Brief: FOUND: dry, pink, warm Neurologic RN Documented GCS Eye Opening: Verbal: Motor: Total: Psychiatric (brief) FOUND: alert, oriented Laboratory Laboratory Tests Test 12/18/16 10:56 12/18/16 10:57 12/18/16 13:34 D-Dimer < 150NG/ML White Blood Count 3.6T/MM3 Red Blood Count 5.31M/MM3 Hemoglobin 16.1GM/DL Hematocrit 47.7% Mean Corpuscular Volume 89.8UM3 Mean Corpuscular Hemoglobin 30.3UUG Mean Corpuscular Hemoglobin Concent 33.8GM/DL RDW Standard Deviation 44.4FL Platelet Count 168T/MM3 Mean Platelet Volume 9.5UM3 Immature Granulocyte % (Auto) 0.3% Neutrophils (%) (Auto) 55.2% Lymphocytes (%) (Auto) 34.7% Monocytes (%) (Auto) 7.8% Eosinophils (%) (Auto) 1.4% Basophils (%) (Auto) 0.6% Absolute Immature Granulocyte (auto 0.01T/MM3 Absolute Neutrophils (auto) 2.0T/MM3 Absolute Lymphocytes (auto) 1.3T/MM3 Absolute Monocytes (auto) 0.3T/MM3 Absolute Eosinophils (auto) 0.1T/MM3 Absolute Basophils (auto) 0.0T/MM3 Turbidity < 20 Sodium Level 142MEQ/L Potassium Level 4.6MEQ/L Chloride Level 105MEQ/L Carbon Dioxide Level 26MEQ/L Anion Gap 11MEQ/L Blood Urea Nitrogen 16.0MG/DL Creatinine 0.8MG/DL Glomerular Filtration Rate Calc 103 BUN/Creatinine Ratio 20RATIO Glucose Level 101MG/DL Calculated Osmolality 274MOSM/KG Calcium Level 9.3MG/DL Total Bilirubin 0.60MG/DL Icterus Index < 2 Aspartate Amino Transf (AST/SGOT) 32U/L Alanine Aminotransferase (ALT/SGPT) 40U/L Alkaline Phosphatase 74U/L Troponin I < 0.012ng/ml Total Protein 7.3G/DL Albumin 4.2G/DL Globulin 3.1G/DL Albumin/Globulin Ratio 1.4RATIO Chemistry Specimen Hemolysis < 15 Urine Collection Type Cleancatch-midstream Urine Color Colorless Urine Turbidity Clear Urine pH 7.0 Urine Specific [place] 1.010 Urine Protein Negative Urine Glucose (UA) Negative Urine Ketones Negative Urine Blood Negative Urine Nitrite Negative Urine Bilirubin Negative Urine Urobilinogen 0.2EU/DL Urine Leukocyte Esterase Negative Urine RBC None seen/HPF Urine WBC None seen/HPF Urine Squamous Epithelial Cells None seen Urine Bacteria None seen Urine Culture Indicated Cult not indicated Laboratory Tests Test 12/18/16 10:56 12/18/16 10:57 12/18/16 13:34 D-Dimer < 150NG/ML White Blood Count 3.6T/MM3 Red Blood Count 5.31M/MM3 Hemoglobin 16.1GM/DL Hematocrit 47.7% Mean Corpuscular Volume 89.8UM3 Mean Corpuscular Hemoglobin 30.3UUG Mean Corpuscular Hemoglobin Concent 33.8GM/DL RDW Standard Deviation 44.4FL Platelet Count 168T/MM3 Mean Platelet Volume 9.5UM3 Immature Granulocyte % (Auto) 0.3% Neutrophils (%) (Auto) 55.2% Lymphocytes (%) (Auto) 34.7% Monocytes (%) (Auto) 7.8% Eosinophils (%) (Auto) 1.4% Basophils (%) (Auto) 0.6% Absolute Immature Granulocyte (auto 0.01T/MM3 Absolute Neutrophils (auto) 2.0T/MM3 Absolute Lymphocytes (auto) 1.3T/MM3 Absolute Monocytes (auto) 0.3T/MM3 Absolute Eosinophils (auto) 0.1T/MM3 Absolute Basophils (auto) 0.0T/MM3 Turbidity < 20 Sodium Level 142MEQ/L Potassium Level 4.6MEQ/L Chloride Level 105MEQ/L Carbon Dioxide Level 26MEQ/L Anion Gap 11MEQ/L Blood Urea Nitrogen 16.0MG/DL Creatinine 0.8MG/DL Glomerular Filtration Rate Calc 103 BUN/Creatinine Ratio 20RATIO Glucose Level 101MG/DL Calculated Osmolality 274MOSM/KG Calcium Level 9.3MG/DL Total Bilirubin 0.60MG/DL Icterus Index < 2 Aspartate Amino Transf (AST/SGOT) 32U/L Alanine Aminotransferase (ALT/SGPT) 40U/L Alkaline Phosphatase 74U/L Troponin I < 0.012ng/ml Total Protein 7.3G/DL Albumin 4.2G/DL Globulin 3.1G/DL Albumin/Globulin Ratio 1.4RATIO Chemistry Specimen Hemolysis < 15 Urine Collection Type Cleancatch-midstream Urine Color Colorless Urine Turbidity Clear Urine pH 7.0 Urine Specific [place] 1.010 Urine Protein Negative Urine Glucose (UA) Negative Urine Ketones Negative Urine Blood Negative Urine Nitrite Negative Urine Bilirubin Negative Urine Urobilinogen 0.2EU/DL Urine Leukocyte Esterase Negative Urine RBC None seen/HPF Urine WBC None seen/HPF Urine Squamous Epithelial Cells None seen Urine Bacteria None seen Urine Culture Indicated Cult not indicated Radiology DATE OF EXAM: 12/18/16 ORDERING DOCTOR: ROHAN VILLALPANDO DO TYPE OF EXAM: CHEST 1 VIEW REASON FOR EXAM: pain Indication: ITS.REASON: Left-sided chest pain radiating down the left arm PROCEDURE: CHEST 1 VIEW: Encounter: Initial Comparison: September 24, 2015 FINDINGS: The lungs are clear. There is no abnormal airspace opacity, pleural effusion or pneumothorax identified. The heart size, pulmonary vasculature and mediastinum are within normal limits. No significant skeletal abnormality is seen. IMPRESSION: No acute cardiopulmonary abnormality. DATE OF EXAM: 12/18/16 ORDERING DOCTOR: JANE FELDER DO TYPE OF EXAM: US CAROTID DOPP COMPLETE REASON FOR EXAM: trouble wordfinding. Indication: ITS.REASON: trouble wordfinding. PROCEDURE: US CAROTID DOPP COMPLETE: TECHNIQUE: Grayscale, color and duplex Doppler imaging was performed of the carotid systems bilaterally. Velocities in cm/sec - validated velocity measurements with angiographic measurements, velocity criteria are extrapolated from diameter data as defined by the Society of Radiologists in Ultrasound Consensus Conference Radiology 2003; 229;340-346. RIGHT: PSV ICA 75 EDV ICA 27.6 PSV CCA 101 EDV CCA 24.4 SVR 0.7 PSV ECA 104 ICA Diameter reduction 0% (<0.8)% LEFT: PSV ICA 78.2 EDV ICA 14.7 PSV CCA 125 EDV CCA 38.7 SVR 0.6 PSV ECA 83.8 ICA Diameter reduction 0% (<0.8)% The right vertebral artery is patent with cephalic flow. The left vertebral artery is patent with cephalic flow. No significant atherosclerotic plaque. No velocity elevation. IMPRESSION: No hemodynamically significant carotid stenosis. DATE OF EXAM: 12/18/16 ORDERING DOCTOR: JANE FELDER DO TYPE OF EXAM: CT HEAD W/O CONTRAST REASON FOR EXAM: headaches, trouble with wordfinding. Indication: ITS.REASON: headaches, trouble with wordfinding. PROCEDURE: CT HEAD W/O CONTRAST: Encounter: Initial Comparison: February 07, 2015 Technique: Axial CT images through the head were performed without contrast. Iterative Reconstruction dose reducing technique was utilized. FINDINGS: The ventricles are of normal size, shape, and configuration for the patient's age. There is no evidence of acute intracranial hemorrhage, midline displacement, or mass effect. The CT attenuation of the brain parenchyma is normal within the cerebellum, brain stem, and cerebral hemispheres. The tympanic cavities and mastoid air cells are free of appreciable disease. There are no definite fractures of the skull base, calvarium, or visualized portion of the midface. IMPRESSION: No CT evidence of acute intracranial abnormality. Stable head CT. Impression/Recommendation Problems: (1) Atypical chest pain Status: Acute Assessment & Plan: Not likely cardiac as does not present as ischemic. Troponin negative, EKG is nonischemic and Echo is normal. Recommend outpatient stress test in the future. Recommendation Not likely cardiac as does not present as ischemic. Troponin negative, EKG is nonischemic and Echo is normal. Recommend outpatient stress test in the future. Thank you for allowing us to participate in the care of this patient SHOSHANA CALL MD 12/22/16 1637: Past Medical History Current Medications Home Meds Active Scripts Aspirin *EC* (Aspirin EC) 81 Mg Tablet., 81 MG PO DAILY for 30 Days, #30 TAB 2 Refills Prov:JANE FELDER DO 12/19/16 Nitroglycerin (Nitrostat) 0.4 Mg Tablet, 0.4 MG SL Q5MIN Y for CHEST PAIN for 30 Days, #30 TAB 2 Refills may use X3. if you need this medication then call 911. Prov:JANE FELDER DO 12/19/16 Reported Medications Multivitamin (Multi-Day Vitamins) 1 Each Tablet, 1 TAB PO QOD 12/18/16 Omeprazole Magnesium (Prilosec Otc) 20 Mg Tablet.dr, 20 MG PO DAILY 12/18/16 Celecoxib (Celebrex) 100 Mg Capsule, 100 MG PO BID 12/18/16 Tramadol HCl (Tramadol HCl) 50 Mg Tablet, 50 MG PO Q6HR Y for PAIN 12/18/16 Discontinued Reported Medications Menthol/Aloe Vera/Vitamin E (Flexall 7% Gel) 113 Gm Gel..gram., 1 APPLIC TOP PRN 12/18/16 Allergies: Coded Allergies: No Known Drug Allergies (Verified Allergy, Unknown, 12/18/16) morphine (Verified Adverse Reaction, Unknown, [facility], ) Impression/Recommendation Recommendation After examining the patient I agree with the above assessment. I am involved in the formulation of the patient's plan of care. KO ESTEVEZ APRN Dec 18, 2016 16:38 SHOSHANA CALL MD Dec 22, 2016 16:37
[2016-12-18 17:16] LABS: INR 0.99 (0.76-1.04); PROTHROMBIN TIME 10.8 SEC (9.31-12.49); PTT 27.2 SEC (24-36)
[2016-12-18 17:18] LABS: MAGNESIUM 2.4 MG/DL (1.6-2.3); PHOSPHORUS 3.7 MG/DL (2.5-4.5)
[2016-12-18 18:11] LABS: C-REACTIVE PROTEIN < 5.0 MG/L (0-9)
--- NOTE | 2016-12-18 18:11 | NUR ---
SHIFT SUMMARY VSS. RA. DENIES CHEST PAIN. UP AD MARQUISE. GOOD URINE OUTPUT. GOOD APPETITE AND INTAKE. TELE REMAINS SR.
--- NOTE | 2016-12-18 20:32 | NUR ---
STATUS VT WAS CLEARED BY THE BLOOD DONOR RECRUITER SUPERVISOR THIS EVENING. HERE TO GIVE HIM A RIDE HOME. DR FELDER PAGED. HE SAID HE IS NOT GOING TO DISCHARGE HIM UNTIL THE TROPONIN IS DONE TOMORROW. PT OK WITH THAT. WILL CONTINUE TO MONITOR.
[2016-12-18] MEDS ORDERED: ATORVASTATIN 10 MG TABLET PO SCH (22:00)
[2016-12-18 22:19] VITALS: PULSE 74
[2016-12-19] MEDS: TRAMADOL 50 MG TABLET PO PRN ×2 (00:21→09:22)
[2016-12-19 00:22] VITALS: BP 116/78; PULSE 87; RESP 20; TEMP 96.5; O2SAT 98
--- NOTE | 2016-12-19 00:30 | NUR ---
PRN PT REPORTED 7/10 BLE PAIN. PT REQUESTED TRAMADOL THAT HE USES FOR PAIN. TELE HOSPITALIST GAVE AN ORDER FOR TRAMADOL. MEDICATION GIVEN PER THE ORDER.
[2016-12-19 01:45] LABS: ALBUMIN 3.9 G/DL (3.5-5.0); ALBUMIN/GLOBULIN RATIO 1.4 RATIO (1.1-2.2); ALKALINE PHOSPHATASE 69 U/L (38-126); ALT (SGPT) 32 U/L (21-72); ANION GAP 11 MEQ/L (5-15); AST (SGOT) 26 U/L (17-59); BUN/CREATININE RATIO 23 RATIO (6-26); CALCIUM 9.3 MG/DL (8.4-10.2); CHLORIDE 105 MEQ/L (98-107); CO2 - CARBON DIOXIDE 26 MEQ/L (22-30); CREATININE 0.8 MG/DL (0.8-1.5); GLOMERULAR FILTRATION RATE 103; GLUCOSE 112 MG/DL (75-110); POTASSIUM 4.9 MEQ/L (3.6-5); SODIUM 142 MEQ/L (134-144); TOTAL PROTEIN 6.6 G/DL (6.3-8.2)
[2016-12-19 01:48] LABS: LDL CHOLESTEROL,CALCULATED 111.6 (66-159); RISK FACTOR 4.2 RATIO (0-5.0); VLDL CHOLESTEROL 37.4 MG/DL (0-28)
[2016-12-19] MEDS ORDERED: OMEPRAZOLE 20 MG CAPSULE PO SCH (06:30)
--- NOTE | 2016-12-19 06:51 | NUR ---
SUMMARY PT SLEPT WELL THIS SHIFT AFTER TRAMADOL WAS GIVEN. PT IS ALERT AND ORIENTED. AMBULATE WITH NO ASSIST. GAIT STEADY. PT WAS EDUCATED ABOUT CALL LIGHT USE AND SAFETY. DENIED ANY CHEST PAIN THIS SHIFT. TELE NORMAL SINUS ALL NIGHT.
[2016-12-19] MEDS ORDERED: ASPIRIN 81 MG CHEWABLE TABLET PO SCH (09:00)
[2016-12-19] MEDS ORDERED: ASPIRIN *EC* 81mg TABLET PO SCH (09:00)
[2016-12-19] MEDS ORDERED: ENOXAPARIN 40 MG/0.4 ML INJECTION SQ SCH (09:00)
[2016-12-19] MEDS ORDERED: LISINOPRIL 2.5 MG TABLET PO SCH (09:00)
--- NOTE | 2016-12-19 09:06 | PNPDOC ---
Subjective Date DATE: 12/19/16 TIME: 08:46 Subjective doing well. no major issues overnight. no chest pain overnight. no headaches , stroke symptoms, syncope, dizziness, URI symptoms, fevers, chills, body aches , SOA, heart failure symptoms, hemoptysis, cough, sputum production, ab pain, GERD symptoms, nausea, vomiting, diarrhea, constipation, bloody/black stools, dysuria, hematuria, urinary frequency, flank pain, other urinary issues. no events called on telemetry overnight. no new acute issues otherwise. Objective Vital Signs Vital signs Vital Signs Date Time Temp Pulse Resp B/P Pulse Ox O2 Delivery O2 Flow Rate FiO2 12/19/16 00:22 96.5 87 20 116/78 98 Room Air Telemetry Rhythm: Sinus Rhythm Height (Feet): 5 Height (Inches): 9.50 Weight (Kilograms): 73.500 General General Appearance: Alert, Orientated x 3, Cooperative, No Acute Distress Eyes (Brief) Eyes: NOT FOUND: scleral icterus, trauma ENMT (Brief) Comments mucous membranes moist. Neck (Brief) Neck: FOUND: midline, NOT FOUND: JVD, tracheal deviation Comments no photophobia. no clinical evidence of meningitis at this time. Respiratory (Brief) Respiratory: FOUND: clear all bennett, equal bilaterally, symmetrical, NOT FOUND : rales, spasm, tenderness, wheezes Comments no crackles. all findings bilateral. lung sounds heard in all lung bennett b/l at this time. no respiratory distress, retractions, accessory muscle use. Cardiovascular (Brief) Cardiac: FOUND: regular rate, regular rhythm, NOT FOUND: click, gallop, murmur , pedal edema, peripheral edema, rub Comments clinically well perfused in all 4 extremities at this time. no edema in legs bilaterally. legs symmetrical and compartments soft b/l in LE's at this time. Abdomen (Brief) Abdominal: FOUND: BS normo active x4, soft (X4.), NOT FOUND: distended, hepatosplenomegaly, pulsatile mass, tender (X4.) Comments no guarding, rebound, rigidity. (Brief) Comments no tenderness over bladder area. Lymphatic (Brief) Lymphatic: NOT FOUND: lymphedema Musculoskeletal (Brief) Musculoskeletal: NOT FOUND: deformity, loss of motion Integumentary (Brief) Integumentary: FOUND: dry, pink, warm, NOT FOUND: lesions, rash Comments to uncovered areas. Neurologic (Brief) Comments stable from previous. no focal deficits grossly. Psychiatric (Brief) Psychiatric: FOUND: alert, attentive, normal affect, oriented Laboratory Laboratory Laboratory Tests 12/18/16 10:57 12/19/16 01:06 Laboratory Tests 12/18/16 10:57 EKG see below. Microbiology Microbiology no new information at this time. Radiology see below. Sepsis Diagnostic Criteria Additional Information Comments not applicable. Assessment & Plan Assessment atypical chest pain headache, lightheadedness and trouble wordfinding, resolved. mild leukopenia of uncertain etiology osteoarthritis -continue outpatient/observation, routine vitals with call parameters, oxygen as needed, I's and O's, daily weights, telemetry, cardiac diet for now. -troponins X3 negative. CK, TSH, mg, phos, coags, UA unremarkable. repeat EKG's stable and essentially normal. cbc from this AM stable from yesterday. cmp today normal. CT head, carotid dopplars unremarkable. see previous notes for other testing and results from this stay. -echocardiogram, lipids and CT chest without contrast pending. -Dr. Valentine, cardiology consulted. doesn't feel this is likely cardiac. no indication for full dose lovenox, stress test, cardiac cath while inpatient and rest can be done as outpatient. alter meds as listed below. -continue ASA and nitro SL prn for now. -discontinued lisinopril, metoprolol, statin, SQ lovenox, IV fluids for now. -continue hold home celebrex, multivitamin, flexall cream, tramadol while inpatient. will likely restart as outpatient. -further management pending the above. GERD -continue home omeprazole. all other chronic medical conditions stable and no changes to plan of care at this time. ppx -SCD's for DVT ppx. given low likelyhood of this being cardiac as well as short length of stay, the risk of pharmacologic DVT ppx outweights benefit. -continue above ppi from home and above diet for GI ppx at this time. -FULL CODE -dispo assuming above testing looks ok patient to be discharged later today with outpatient primary care and cardiology follow up. Code Status JANE FELDER DO Dec 19, 2016 08:49
[2016-12-19] MEDS ORDERED: NITR0.4T SL (09:20)
[2016-12-19] MEDS ORDERED: ASPI-1085 PO (09:20)
[2016-12-19 09:24] VITALS: BP 121/72; PULSE 68; RESP 16; TEMP 95.7
[2016-12-19 09:31] VITALS: PULSE 87; RESP 16
--- NOTE | 2016-12-19 09:33 | DI ---
Indication: ITS.REASON: chest pain PROCEDURE: CT CHEST W/O CONTRAST: Encounter: Initial Comparison: Chest CT dated May 31, 2015 Technique: Axial CT images were performed through the chest without intravenous contrast. Coronal and sagittal two-dimensional reformats. Automated Exposure Control and Iterative Reconstruction dose reducing techniques were utilized. Findings: Small amount of groundglass opacity in the left lower lobe is unchanged and could be due to scarring. Linear atelectasis also in the medial left lower lobe. Lung bennett are otherwise clear. No worrisome pulmonary nodule or mass. No pleural effusion, pneumonia or pneumothorax. The central airways are patent. No axillary or mediastinal adenopathy by CT criteria. Small paratracheal nodes are unchanged. Heart size is normal. Mild atherosclerotic plaque in the left anterior descending and left circumflex coronary arteries. This appears similar to the comparison. No pericardial effusion. The upper abdomen shows no acute findings. Impression: No acute disease process seen. .
--- NOTE | 2016-12-19 10:24 | ECHOF ---
ECHOCARDIOGRAM REPORT DATE OF PROCEDURE: December 18, 2016 This is a two-dimensional echo with spectral Doppler, color-flow and M-mode. It was obtained in a patient with chest pain. Left atrial dimension is normal. Left ventricle end-diastolic dimension is normal. Left ventricle wall thickness is normal. LV systolic function is normal with ejection fraction of 61%. Right atrium is normal. Right ventricle is normal. Aortic root dimension is normal. Mitral, aortic, tricuspid, and pulmonary valves are morphologically normal with trace of mitral and trace of tricuspid regurgitation with normal estimated pulmonary artery systolic pressure of 27. There is no pericardial effusion. IMPRESSION Essentially normal echo with trivial mitral and tricuspid regurgitation. MTDD
--- NOTE | 2016-12-19 11:05 | NUR ---
[facility] CM VISITED PT. CM EXPLAINED ROLE AND PROVIDED CONTACT INFORMATION. PT PLANS TO RETURN HOME TODAY. PT DENIES NEEDS. PT IS AWARE TO CONTACT CM IF NEEDS ARISE.
--- NOTE | 2016-12-19 11:05 | NUR ---
DISCHARGED DISCHARGE AND MEDICATION INSTRUCTIONS ARE GIVEN. ALL QUESTIONS ANSWERED. PATIENT IS WALKED OUT TO PRIVATE VEHICLE ACCOMPANIED BY STAFF AND SPOUSE.
--- NOTE | 2016-12-19 12:26 | DSF ---
ATTENDING PHYSICIAN Yury Patel DO [facility] ADMITTING PHYSICIAN Yury Patel DO [facility] CONSULTING PHYSICIAN Von Valentine MD of Cardiology ANCILLARY SERVICES None. DISCHARGE DIAGNOSES 1. Atypical chest pain, not likely cardiac. Further workup pending as outpatient. 2. Headache, lightheadedness and trouble word-finding, resolved, and stroke workup negative. 3. Mild leukopenia of uncertain etiology. 4. Osteoarthritis. 5. Gastrointestinal reflux disease. 6. Chronic chewing tobacco use. 7. Mild hyperlipidemia. DISCHARGE ORDERS Discharge diet is cardiac and low sodium. Discharge activity is as tolerated. FOLLOWUP APPOINTMENTS 1. Patient to see Dr. Patel at [facility] in two weeks with a CBC and CMP the day before. 2. The patient to follow up with Dr. Valentine of Cardiology in 1-2 weeks. 3. All other appointments with other providers remain the same. EXPECTED SIGNS/SYMPTOMS The patient's chest pain, shortness of breath, dizziness should stay resolved and your fatigue should continue to improve. NOTIFY PHYSICIAN 1. Return to care immediately if chest pain, shortness of air, dizziness, headaches, trouble speaking/understanding speech, trouble swallowing, falls should occur and/or if fatigue worsens again. 2. If any issues worsen and/or new ones occur, the patient will be seen immediately. 3. Contact numbers are given for Dr. Patel for during business and after business hours. PAIN MANAGEMENT/TREATMENT 1. If the patient has any pain or discomfort, he will be seen right away. WOUND/INCISION CARE This is not applicable. INSTRUCTIONS 1. To nursing. Nursing is ordered to discontinue all lines, IVs and telemetry before discharge. 2. If the patient cannot afford his medicines and/or make his appointments, he will let us know right away. DURABLE MEDICAL EQUIPMENT This is not applicable. PENDING LABS AND RESULTS The patient will follow up with primary care for this. DISCHARGE MEDICINES 1. Aspirin enterically coated 81 mg p.o. daily. This is a new medicine. 2. Nitrostat sublingual 0.4 mg sublingual q. 5 minutes x3 p.r.n. chest pain. If this is needed at all, the patient will call 9-1-1. 3. Celebrex 100 mg p.o. b.i.d. 4. Multivitamin, one p.o. daily. 5. Omeprazole 20 mg p.o. daily. 6. Tramadol 50 mg p.o. q.6h. p.r.n. pain. 7. The patient's Flexall cream was stopped during the stay. PERTINENT LABORATORY CBCs were normal while here except for white blood cell count was 3.6, but otherwise unremarkable. D-dimer on admission was normal as was the patient's PTT and INR. Sodiums, potassiums, chlorides, acid base status, renal function were normal while here. Blood sugar was 112 the day of discharge but had otherwise been normal. Magnesium and phosphorus were unremarkable as were calciums. Liver functions tests were normal. Creatinine kinase was unremarkable and troponins x3 were negative. C-reactive protein was normal on admission. Protein indices were unremarkable. Lipid panel showed triglycerides of 187, total cholesterol of 196, LDL of 111, HDL of 47. TSH was normal while here. Urinalysis on admission was normal. PERTINENT IMAGING CT of the chest done the day of discharge was unremarkable and his aorta looked fine. A CT of the head without contrast as well as chest x-ray and carotid Doppler study bilateral were all unremarkable. EKGs during the stay were normal. There was only one done on admission. Echocardiogram done 12/18/2016 was essentially completely normal with trivial mild mitral and tricuspid regurgitation. HISTORY OF PRESENT ILLNESS AND HOSPITAL COURSE This is a pleasant 51-year-old male known to our clinic. He was in his usual state of health up until about two months ago. He is a chronic tobacco user and has chewed tobacco for years. About two months ago, he started in with left-sided chest pain radiating down the left arm associated with shortness of breath. This would occur most especially after sex and with exertion. He did not tell anyone about this for a while but 2-3 days previous to admission he had an episode where the symptoms did not resolve and presented to the clinic that day. He was sent to the ER and an extensive imaging and laboratory evaluation was undertaken as above. He was admitted overnight to rule out myocardial infarction. He was initially started on a beta linnette, aspirin, statin as well as an JOSESITO inhibitor. He was started on Lovenox for DVT prophylaxis. He was given 325 mg of aspirin before admission. Cardiology was consulted as listed above and they felt this was extremely unlikely to be cardiac. His medications were pared down to an aspirin 81 mg p.o. daily enterically coated as well as some sublingual nitroglycerin should he need it p.r.n. Dr. Valentine felt this was extremely unlikely to be cardiac in nature and did not see the need for an inpatient stress test, cardiac catheterization or any further workup. Troponins x3 were negative. The vitals were stable throughout. The patient was chest pain-free and shortness of air-free throughout the rest of his stay. He had been having episodes of dizziness and some subjective trouble word-finding before admission he says. A stroke workup was undertaken as listed above and was unremarkable. Dr. Valentine will follow as an outpatient as listed above. They will likely do an outpatient stress test at which time they can evaluate for further augmentation of his meds including a beta linnette, statin and JOSESITO inhibitor. There was no indication for full dose anticoagulation with Lovenox while here given the above negative studies. The patient had no more dizziness or trouble with word-finding while here. His neurological exam was completely normal. He was discharged with the above orders with outpatient followup, in stable and good condition. He was a little dehydrated on admission and he did get some IV fluids for a while but these were discontinued last night. Further workup will be as an outpatient as listed above. Noted he had no focal deficits while here. In regards to patient's mild leukopenia. This was generally stable while here and will be followed as an outpatient. In regards to the patient's osteoarthritis. He was restarted back on his home meds as an outpatient of the Celebrex and tramadol which he has been on for quite some time. In regards to the patient's gastrointestinal reflux disease. This was completely asymptomatic while here and he will be continued on his home omeprazole. All other chronic medical conditions stable and no changes to plan of care at this time. For DVT prophylaxis, the patient was on SCDs while here. He was initially put on subcutaneous Lovenox but, given his low likelihood of a cardiac nature as the cause of his symptoms as well as the short length of stay, it was deemed that the risk of pharmacological DVT prophylaxis outweighed the benefit and it was discontinued. For GI prophylaxis, the patient was continued on his home proton pump inhibitor and given a diet. The patient was a FULL CODE while here. DISPOSITION Is discharged to home in stable and good condition today with outpatient medications, orders and followup as is listed above. MTDD
== END 2016-12-19 11:05 | disposition home or self-care (01) ==
LOC: ED 10:40 → MED 12:38 → EDHOLD 12:38
PROVIDERS: ADMIT Internal Medicine; ATTEND Internal Medicine
DX: R07.89 Other chest pain (principal); R51 Headache; R42 Dizziness and giddiness; R53.1 Weakness; R47.9 Unspecified speech disturbances; D72.819 Decreased white blood cell count, unspecified; K21.9 Gastro-esophageal reflux disease without esophagitis; F17.220 Nicotine dependence, chewing tobacco, uncomplicated; E78.5 Hyperlipidemia, unspecified; N40.0 Benign prostatic hyperplasia without lower urinary tract symptoms; F32.9 Major depressive disorder, single episode, unspecified; F41.9 Anxiety disorder, unspecified; F10.21 Alcohol dependence, in remission; R06.09 Other forms of dyspnea; Z79.899 Other long term (current) drug therapy; Z79.1 Long term (current) use of non-steroidal anti-inflammatories (NSAID); Z82.3 Family history of stroke
CPT/HCPCS: 36415; 70450; 71010; 71250; 80053; 80061; 81001; 82550; 83735; 84100; 84443; 84484; 85025; 85379; 85610; 85730; 86140; 93005; 93306; 93880; 96360; 96361; 99218; 99284; J7030

== ENCOUNTER → 2016-12-24 | Outpatient (CLI) | payer BC ==
[~2016-12-24] MED LIST changes: -ACET-2723 PO; +ASPI-1085 PO; +CELE100C PO; -IBUP-2067 PO; +MULT-933 PO; +NITR0.4T SL; +OMEP20TA2 PO; -TRAM200T2 PO; -TRAZ300T2 PO
[2016-12-24 12:43] LABS: BASOPHILS % (AUTO) 0.8 % (0-2); EOSINOPHILS % (AUTO) 0.6 % (0-4); HCT - HEMATOCRIT 48.4 % (41-53); HGB - HEMOGLOBIN 16.5 GM/DL (13.5-17.5); IMMATURE GRANULOCYTE # (AUTO) 0.01 T/MM3 (0.00-0.03); IMMATURE GRANULOCYTE % (AUTO) 0.3 % (0.0-0.5); LYMPHOCYTES # (AUTO) 1.1 T/MM3 (1-4.8); LYMPHOCYTES % (AUTO) 29.3 % (23-45); MEAN CORPUSCULAR HGB 30.2 UUG (26-34); MEAN CORPUSCULAR HGB CONC(MCHC 34.1 GM/DL (31-37); MEAN CORPUSCULAR VOLUME 88.6 UM3 (80-100); MEAN PLATELET VOLUME 9.3 UM3 (9.4-12.4); MONOCYTES # (AUTO) 0.3 T/MM3 (0-0.8); MONOCYTES % (AUTO) 8.1 % (0-9.0); NEUTROPHILS #(AUTO)-ABSOLUTE 2.2 T/MM3 (1.8-7.7); NEUTROPHILS % (AUTO) 60.9 % (33-66); RED BLOOD COUNT 5.46 M/MM3 (4.50-5.90); WBC - WHITE BLOOD COUNT 3.6 T/MM3 (4.5-11.0)
[2016-12-24 12:51] LABS: ALBUMIN 4.3 G/DL (3.5-5.0); ALBUMIN/GLOBULIN RATIO 1.4 RATIO (1.1-2.2); ALKALINE PHOSPHATASE 78 U/L (38-126); ALT (SGPT) 30 U/L (21-72); ANION GAP 12 MEQ/L (5-15); AST (SGOT) 26 U/L (17-59); BUN/CREATININE RATIO 20 RATIO (6-26); CALCIUM 9.5 MG/DL (8.4-10.2); CHLORIDE 104 MEQ/L (98-107); CO2 - CARBON DIOXIDE 26 MEQ/L (22-30); CREATININE 0.9 MG/DL (0.8-1.5); GLOMERULAR FILTRATION RATE 90; GLUCOSE 114 MG/DL (75-110); POTASSIUM 4.9 MEQ/L (3.6-5); SODIUM 142 MEQ/L (134-144); TOTAL PROTEIN 7.3 G/DL (6.3-8.2)
[2016-12-24 12:55] LABS: MONOTEST NEGATIVE (NEGATIVE)
[2016-12-24 13:36] LABS: C-REACTIVE PROTEIN < 5.0 MG/L (0-9)
== END ==
LOC: LAB 12:25
PROVIDERS: ATTEND Internal Medicine
DX: R53.83 Other fatigue (principal); R07.9 Chest pain, unspecified; R61 Generalized hyperhidrosis
CPT/HCPCS: 36415; 80053; 84484; 85025; 85379; 86140; 86308; 87486; 87581; 87633; 87798